=== PATIENT | male | born 1970 | race African-American/Black ===

== ENCOUNTER 2022-02-20 08:25 | Inpatient (IN) ==
--- NOTE | 2022-02-20 08:51 | Emergency Department Note ---
History of Present Illness General Chief complaint: Stroke/CVA Symptoms Stated complaint: Stroke Time Seen by Provider: 02/20/22 08:37 Source: patient and other (Gopal nurse practitioner at the [facility]) History of Present Illness Provider complaint: Weakness Onset (ago): hour(s) Location: upper extremity, lower extremity, left and right Pain Consistency: + constant Quality: + other (Weakness) Relieved By: + none Associated symptoms: + weakness; no chest pain, no cough, no fever/chills, no headaches, no nausea/vomiting or no shortness of breath This is a 51-year-old male who presents with generalized weakness starting at approximately 7 PM yesterday. The patient states that he feels weak all over. This morning he had difficulty walking and states that his arms and legs were shaking. He denies any asymmetric weakness but states that his left side seems weaker than the right when pressed about this question. He denies any fever, cough or cold symptoms, headache, chest pain, shortness of breath, abdominal pain, vomiting, diarrhea or urinary symptoms. I did speak to Gopal who [facility] He stated that the patient reported feeling "off" yesterday after dinner. This morning the CO brought him in at 7:30 AM. He stated that the patient was complaining of difficulty walking and weakness and was not acting himself. He had some difficulty answering questions. The [facility] practitioner noted a right facial droop at rest only. The patient is on lithium but has not had his lithium levels checked since last year. Home Medications Medication Instructions Recorded Confirmed Type propranolol 20 mg tablet 20 mg PO BID 01/23/20 02/20/22 History hydroxyzine pamoate 50 mg capsule 50 mg PO HS 02/20/22 02/20/22 History levothyroxine 50 mcg tablet 50 mcg PO DAILYBB 02/20/22 02/20/22 History lithium carbonate 450 mg 900 mg PO BID 02/20/22 02/20/22 History tablet,extended release Allergies Allergy/AdvReac Type Severity Reaction Status Date / Time No Known Allergies Allergy Verified 02/20/22 09:30 Past Med/Surg History Medical History (Updated 02/20/22 @ 12:59 by Des Correia MD) Bipolar 1 disorder Disc degeneration GERD (gastroesophageal reflux disease) Hyperthyroidism Inmate in correctional facility Left inguinal hernia Neutropenia Sutured skin wound back of head in 1986 Surgical History No history of previous surgery S/P left inguinal hernia repair (02/16/20) Left Open Inguinal Hernia Repair with Mesh Dr. Castro 02/16/20 Family History (Updated 02/20/22 @ 11:37 by GISELA Gibson) Other Family history non-contributory Social History Smoking Status: Current every day smoker Tobacco Type: E-cigarettes / Vaping Preferred Language: Unknown Communication Ability: UNKNOWN Current Living Situation: Other Current Living Situation Comment: [facility] current occupational status: other current occupation: incarcerated Feels Safe at Home: Yes Review of Systems See HPI for pertinent positives & negatives. and A total of 10 systems reviewed and were otherwise negative Physical Exam Vital Signs Vital Signs - 24 hr 02/20/22 08:29 02/20/22 09:17 02/20/22 09:38 Temperature 36.9 C Temperature Source Oral Pulse Rate 70 Pulse Rate [Apical] 74 67 Respiratory Rate 16 16 16 Respiratory Effort / Characteristics Non-Labored Spontaneous Non-Labored Spontaneous Non-Labored Spontaneous Respiratory Depth Normal Normal Normal Respiratory Pattern Regular Blood Pressure 149/100 H Blood Pressure [Right Arm] 134/91 133/87 Blood Pressure Mean 116 Blood Pressure Mean [Right Arm] 105 102 Blood Pressure Position Lying Blood Pressure Position [Right Arm] Lying Lying Pulse Oximetry 96 93 95 Oxygen Delivery Method Room Air Room Air Room Air Sepsis Recent Fever Within 48 Hours No Sepsis New/Unexplained Change in Mental Status No Sepsis Action Taken by Nursing No Action Required 02/20/22 10:16 02/20/22 11:43 02/20/22 12:25 Temperature Temperature Source Pulse Rate Pulse Rate [Apical] 64 60 80 Respiratory Rate 16 16 16 Respiratory Effort / Characteristics Non-Labored Spontaneous Non-Labored Spontaneous Non-Labored Spontaneous Respiratory Depth Normal Normal Normal Respiratory Pattern Regular Blood Pressure Blood Pressure [Right Arm] 124/95 144/99 H 132/88 Blood Pressure Mean Blood Pressure Mean [Right Arm] 104 114 102 Blood Pressure Position Blood Pressure Position [Right Arm] Lying Lying Lying Pulse Oximetry 94 98 97 Oxygen Delivery Method Room Air Room Air Room Air Sepsis Recent Fever Within 48 Hours Sepsis New/Unexplained Change in Mental Status Sepsis Action Taken by Nursing Constitutional: Vital signs reviewed. Eyes: Pupils are equal round reactive to light. Conjunctiva are noninjected. ENT: Pharynx is clear without erythema or exudate. Mucous membranes are moist. Neck supple without meningeal signs. Respiratory: Clear to auscultation bilaterally. Breath sounds are equal bilaterally. Cardiovascular: Regular rate and rhythm. No rubs or gallops. GI: Soft, nondistended and nontender. Bowel sounds are present. Musculoskeletal: No peripheral edema. No lower extremity tenderness. Integumentary: No cyanosis. or jaundice. Neurologic: The patient is appears somewhat sleepy but follows commands. He is somewhat slow to follow commands and answer question but he is oriented x4. Cranial nerves II-XII are intact. Motor is 5 out of 5 all extremities. Sen sation is intact to light touch all extremities. Normal speech. No pronator drift. No limb ataxia. Psychiatric: Normal affect. Not anxious appearing. Course Administered Medications Sodium Chloride (Nss 1000ml) 1,000 mls @ 250 mls/hr IV .Q4H TJ Stop: 03/22/22 09:59 Last Admin: 02/20/22 11:02 Dose: 250 mls/hr Documented By: ESTRADA Discontinued Medications Sodium Chloride (Nss 1000ml) 1,000 mls @ 999 mls/hr IV .Q1H1M ONE Stop: 02/20/22 10:49 Last Infusion: 02/20/22 11:02 Dose: 0 mls/hr Documented By: Admin: 02/20/22 09:58 Dose: 999 mls/hr Documented By: ESTRADA Medical Decision Making Differential Diagnosis [place] toxicity, metabolic derangement, encephalopathy,CVA, TIA, intracranial mass, intracranial bleed, illicit drug use Medical Records Attestation: I reviewed the patient's medical records. I did perform a limited focused review of portions of the patient's old chart on the electronic medical record. The patient has had no recent pertinent visits to this hospital. Home Medications Current Medication List: was personally reviewed by me Laboratory Data Attestation: I reviewed the patient's lab results. Result diagrams: 02/20/22 08:37 02/20/22 08:37 Lab Results 02/20/22 02/20/22 02/20/22 Range/Units 08:37 08:37 08:37 WBC 9.59 (4.8-10.8) K/ul RBC 4.37 L (4.63-6.08) M/uL Hgb 12.9 L (14.0-18.0) g/dl POC Hgb (14.0-18.0) g/dl Hct 38.9 L (40.1-51.0) % POC Hct (42-52) % MCV 89.0 (80.0-100.0) fL MCH 29.5 (25.0-34.0) pg MCHC 33.2 (32.0-36.0) g/dL RDW Std Deviation 44.4 (36.4-46.3) fL RDW Coeff of Kiarra 13.6 (11.5-14.5) % Plt Count 269 (130-400) K/uL MPV 11.7 (9.4-12.4) fL Immature Gran % (Auto) 1.0 % Neut % (Auto) 73.2 % Lymph % (Auto) 14.2 % [place] % (Auto) 7.0 % Eos % (Auto) 4.1 % Baso % (Auto) 0.5 % Neut # (Auto) 7.02 H (1.4-6.5) K/uL Lymph # (Auto) 1.36 (1.2-3.4) K/uL [place] # (Auto) 0.67 (0.24-0.82) K/uL Eos # (Auto) 0.39 (0-0.50) K/uL Baso # (Auto) 0.05 (0-0.2) K/uL Immature Gran # (Auto) 0.10 H (0.00-0.02) K/uL PT Cancelled INR Cancelled APTT Cancelled PTT Ratio Cancelled POC Sodium (135-144) mmol/L Sodium 132 L (136-145) mmol/L POC Potassium (3.3-5.0) mmol/L Potassium 3.9 (3.5-5.1) mmol/L POC Chloride (101-112) mmol/L Chloride 104 (98-107) mmol/L Carbon Dioxide 25 (21-32) mmol/L POC Total CO2 (24-31) mmol/L Anion Gap 3 (3-11) POC Anion Gap (16-25) mmol/L POC BUN (7-18) mg/dl BUN 20 (6-23) mg/dl Creatinine 1.67 H (0.6-1.4) mg/dl POC Creatinine (0.6-1.3) mg/dl Est Cr Clr Drug Dosing 52.9 ml/min Est GFR ( Amer) 54.5 ml/min Est GFR (Non-Af Amer) 47.0 ml/min BUN/Creatinine Ratio 12.0 (10-20) Glucose 97 (70-99(Fasting)) mg/dl POC Glucose (other) (70-99) mg/dl Osmolality (280-300) mOsm/kg Calcium 11.1 H (8.5-10.1) mg/dl POC Ioniz Calcium Mary (1.12-1.32) mmol/l Magnesium 2.4 (1.7-2.4) mg/dl Total Bilirubin 0.8 (0.2-1.0) mg/dl AST 27 (13-39) U/L ALT 29 (7-52) U/L Alkaline Phosphatase 137 H (34-104) U/L Troponin I High Sens 4.4 (0-20) pg/ml Total Protein 8.3 (6.0-8.3) gm/dl Albumin 4.5 (3.4-5.0) gm/dl Globulin 3.8 (2.5-4.0) gm/dl Albumin/Globulin Ratio 1.2 (0.9-2) TSH (0.300-4.500) uIu/ml Free T4 (0.61-1.60) ng/dl Urine Osmolality (500-800) mOsm/kg Ur Random Sodium mmol/L Salicylates (3.0-30) mg/dl Urine Opiates Screen (Neg) Ur Methadone, Qual (Neg) Acetaminophen (10-30) ug/ml Urine Barbiturates (Neg) Ur Phencyclidine (PCP) (Neg) U Amphetamin/Meth Scrn (Neg) MDMA (Ecstasy) Screen (Neg) U Benzodiazepines Scrn (Neg) [place] (0.6-1.2) mmol/L Ur Cocaine Metabolite (Neg) U Marijuana (THC) Screen (Neg) SARS-CoV-2, RNA, NAAT (NEGATIVE) 02/20/22 02/20/22 02/20/22 Range/Units 08:37 08:37 08:37 WBC (4.8-10.8) K/ul RBC (4.63-6.08) M/uL Hgb (14.0-18.0) g/dl POC Hgb (14.0-18.0) g/dl Hct (40.1-51.0) % POC Hct (42-52) % MCV (80.0-100.0) fL MCH (25.0-34.0) pg MCHC (32.0-36.0) g/dL RDW Std Deviation (36.4-46.3) fL RDW Coeff of Kiarra (11.5-14.5) % Plt Count (130-400) K/uL MPV (9.4-12.4) fL Immature Gran % (Auto) % Neut % (Auto) % Lymph % (Auto) % [place] % (Auto) % Eos % (Auto) % Baso % (Auto) % Neut # (Auto) (1.4-6.5) K/uL Lymph # (Auto) (1.2-3.4) K/uL [place] # (Auto) (0.24-0.82) K/uL Eos # (Auto) (0-0.50) K/uL Baso # (Auto) (0-0.2) K/uL Immature Gran # (Auto) (0.00-0.02) K/uL PT INR APTT PTT Ratio POC Sodium (135-144) mmol/L Sodium (136-145) mmol/L POC Potassium (3.3-5.0) mmol/L Potassium (3.5-5.1) mmol/L POC Chloride (101-112) mmol/L Chloride (98-107) mmol/L Carbon Dioxide (21-32) mmol/L POC Total CO2 (24-31) mmol/L Anion Gap (3-11) POC Anion Gap (16-25) mmol/L POC BUN (7-18) mg/dl BUN (6-23) mg/dl Creatinine (0.6-1.4) mg/dl POC Creatinine (0.6-1.3) mg/dl Est Cr Clr Drug Dosing ml/min Est GFR ( Amer) ml/min Est GFR (Non-Af Amer) ml/min BUN/Creatinine Ratio (10-20) Glucose (70-99(Fasting)) mg/dl POC Glucose (other) (70-99) mg/dl Osmolality 293 (280-300) mOsm/kg Calcium (8.5-10.1) mg/dl POC Ioniz Calcium Mary (1.12-1.32) mmol/l Magnesium (1.7-2.4) mg/dl Total Bilirubin (0.2-1.0) mg/dl AST (13-39) U/L ALT (7-52) U/L Alkaline Phosphatase (34-104) U/L Troponin I High Sens (0-20) pg/ml Total Protein (6.0-8.3) gm/dl Albumin (3.4-5.0) gm/dl Globulin (2.5-4.0) gm/dl Albumin/Globulin Ratio (0.9-2) TSH 93.837 H (0.300-4.500) uIu/ml Free T4 0.30 L (0.61-1.60) ng/dl Urine Osmolality (500-800) mOsm/kg Ur Random Sodium mmol/L Salicylates (3.0-30) mg/dl Urine Opiates Screen (Neg) Ur Methadone, Qual (Neg) Acetaminophen (10-30) ug/ml Urine Barbiturates (Neg) Ur Phencyclidine (PCP) (Neg) U Amphetamin/Meth Scrn (Neg) MDMA (Ecstasy) Screen (Neg) U Benzodiazepines Scrn (Neg) [place] 3.2 H* (0.6-1.2) mmol/L Ur Cocaine Metabolite (Neg) U Marijuana (THC) Screen (Neg) SARS-CoV-2, RNA, NAAT (NEGATIVE) 02/20/22 02/20/22 02/20/22 Range/Units 09:04 11:09 11:09 WBC (4.8-10.8) K/ul RBC (4.63-6.08) M/uL Hgb (14.0-18.0) g/dl POC Hgb 12.6 L (14.0-18.0) g/dl Hct (40.1-51.0) % POC Hct 37 L (42-52) % MCV (80.0-100.0) fL MCH (25.0-34.0) pg MCHC (32.0-36.0) g/dL RDW Std Deviation (36.4-46.3) fL RDW Coeff of Kiarra (11.5-14.5) % Plt Count (130-400) K/uL MPV (9.4-12.4) fL Immature Gran % (Auto) % Neut % (Auto) % Lymph % (Auto) % [place] % (Auto) % Eos % (Auto) % Baso % (Auto) % Neut # (Auto) (1.4-6.5) K/uL Lymph # (Auto) (1.2-3.4) K/uL [place] # (Auto) (0.24-0.82) K/uL Eos # (Auto) (0-0.50) K/uL Baso # (Auto) (0-0.2) K/uL Immature Gran # (Auto) (0.00-0.02) K/uL PT INR APTT PTT Ratio POC Sodium 135 (135-144) mmol/L Sodium (136-145) mmol/L POC Potassium 5.1 H (3.3-5.0) mmol/L Potassium (3.5-5.1) mmol/L POC Chloride 104 (101-112) mmol/L Chloride (98-107) mmol/L Carbon Dioxide (21-32) mmol/L POC Total CO2 28 (24-31) mmol/L Anion Gap (3-11) POC Anion Gap 9.0 L (16-25) mmol/L POC BUN 25 H (7-18) mg/dl BUN (6-23) mg/dl Creatinine (0.6-1.4) mg/dl POC Creatinine 1.8 H (0.6-1.3) mg/dl Est Cr Clr Drug Dosing ml/min Est GFR ( Amer) ml/min Est GFR (Non-Af Amer) ml/min BUN/Creatinine Ratio (10-20) Glucose (70-99(Fasting)) mg/dl POC Glucose (other) 99 (70-99) mg/dl Osmolality (280-300) mOsm/kg Calcium (8.5-10.1) mg/dl POC Ioniz Calcium Mary 1.38 H (1.12-1.32) mmol/l Magnesium (1.7-2.4) mg/dl Total Bilirubin (0.2-1.0) mg/dl AST (13-39) U/L ALT (7-52) U/L Alkaline Phosphatase (34-104) U/L Troponin I High Sens (0-20) pg/ml Total Protein (6.0-8.3) gm/dl Albumin (3.4-5.0) gm/dl Globulin (2.5-4.0) gm/dl Albumin/Globulin Ratio (0.9-2) TSH (0.300-4.500) uIu/ml Free T4 (0.61-1.60) ng/dl Urine Osmolality 389 L (500-800) mOsm/kg Ur Random Sodium mmol/L Salicylates (3.0-30) mg/dl Urine Opiates Screen Neg (Neg) Ur Methadone, Qual Neg (Neg) Acetaminophen (10-30) ug/ml Urine Barbiturates Neg (Neg) Ur Phencyclidine (PCP) Neg (Neg) U Amphetamin/Meth Scrn Neg (Neg) MDMA (Ecstasy) Screen Neg (Neg) U Benzodiazepines Scrn Neg (Neg) [place] (0.6-1.2) mmol/L Ur Cocaine Metabolite Neg (Neg) U Marijuana (THC) Screen Neg (Neg) SARS-CoV-2, RNA, NAAT (NEGATIVE) 02/20/22 02/20/22 02/20/22 Range/Units 11:09 11:24 11:55 WBC (4.8-10.8) K/ul RBC (4.63-6.08) M/uL Hgb (14.0-18.0) g/dl POC Hgb (14.0-18.0) g/dl Hct (40.1-51.0) % POC Hct (42-52) % MCV (80.0-100.0) fL MCH (25.0-34.0) pg MCHC (32.0-36.0) g/dL RDW Std Deviation (36.4-46.3) fL RDW Coeff of Kiarra (11.5-14.5) % Plt Count (130-400) K/uL MPV (9.4-12.4) fL Immature Gran % (Auto) % Neut % (Auto) % Lymph % (Auto) % [place] % (Auto) % Eos % (Auto) % Baso % (Auto) % Neut # (Auto) (1.4-6.5) K/uL Lymph # (Auto) (1.2-3.4) K/uL [place] # (Auto) (0.24-0.82) K/uL Eos # (Auto) (0-0.50) K/uL Baso # (Auto) (0-0.2) K/uL Immature Gran # (Auto) (0.00-0.02) K/uL PT INR APTT PTT Ratio POC Sodium (135-144) mmol/L Sodium (136-145) mmol/L POC Potassium (3.3-5.0) mmol/L Potassium (3.5-5.1) mmol/L POC Chloride (101-112) mmol/L Chloride (98-107) mmol/L Carbon Dioxide (21-32) mmol/L POC Total CO2 (24-31) mmol/L Anion Gap (3-11) POC Anion Gap (16-25) mmol/L POC BUN (7-18) mg/dl BUN (6-23) mg/dl Creatinine (0.6-1.4) mg/dl POC Creatinine (0.6-1.3) mg/dl Est Cr Clr Drug Dosing ml/min Est GFR ( Amer) ml/min Est GFR (Non-Af Amer) ml/min BUN/Creatinine Ratio (10-20) Glucose (70-99(Fasting)) mg/dl POC Glucose (other) (70-99) mg/dl Osmolality (280-300) mOsm/kg Calcium (8.5-10.1) mg/dl POC Ioniz Calcium Mary (1.12-1.32) mmol/l Magnesium (1.7-2.4) mg/dl Total Bilirubin (0.2-1.0) mg/dl AST (13-39) U/L ALT (7-52) U/L Alkaline Phosphatase (34-104) U/L Troponin I High Sens (0-20) pg/ml Total Protein (6.0-8.3) gm/dl Albumin (3.4-5.0) gm/dl Globulin (2.5-4.0) gm/dl Albumin/Globulin Ratio (0.9-2) TSH (0.300-4.500) uIu/ml Free T4 (0.61-1.60) ng/dl Urine Osmolality (500-800) mOsm/kg Ur Random Sodium 63 mmol/L Salicylates < 3.0 L (3.0-30) mg/dl Urine Opiates Screen (Neg) Ur Methadone, Qual (Neg) Acetaminophen < 3 L (10-30) ug/ml Urine Barbiturates (Neg) Ur Phencyclidine (PCP) (Neg) U Amphetamin/Meth Scrn (Neg) MDMA (Ecstasy) Screen (Neg) U Benzodiazepines Scrn (Neg) [place] (0.6-1.2) mmol/L Ur Cocaine Metabolite (Neg) U Marijuana (THC) Screen (Neg) SARS-CoV-2, RNA, NAAT NEGATIVE (NEGATIVE) Imaging Data Radiologist's Impression: Chest X-Ray 02/20/22 08:47 SINGLE VIEW CHEST CLINICAL HISTORY: Strokelike symptoms. FINDINGS: An AP, portable, upright chest radiograph is obtained. No prior studies are available for comparison at the time of dictation. The examination is degraded by portable technique and patient rotation. The cardiomediastinal silhouette is unremarkable. The lungs and pleural spaces are clear. No pneumothorax is seen. The bony thorax is grossly intact. Sclerotic change is noted in the left humeral head. IMPRESSION: 1. No acute cardiopulmonary abnormality. 2. Sclerotic change is noted in the left humeral head, possibly representing a bone infarct. Clinical correlation will be required. ACT 112: Negative or not required by law. Electronically signed by: Abdoulaye Rivas M.D. 02/20/2022 9:[address] 02/20/22 08:47 CT SCAN OF THE BRAIN WITHOUT IV CONTRAST CLINICAL HISTORY: Right-sided weakness. Facial droop. Stroke like symptoms. COMPARISON STUDY: No priors. TECHNIQUE: Unenhanced axial CT scan of the brain is performed from the vertex to the skull base. A dose lowering technique was utilized adhering to the principles of ALARA. CT DOSE: 687.98 mGy.cm FINDINGS: Brain parenchyma: The brain parenchyma is normal in appearance. There is no hemorrhage, mass effect, or evidence of acute territorial ischemia by CT criteria. Schaffer-white matter differentiation is preserved. No extra-axial fluid collection is seen. Ventricles, sulci, cisterns: Normal in configuration. Intracranial vasculature: The visualized intracranial vasculature at the skull base is normal in appearance. Calvarium: Unremarkable. Sinuses and mastoids: The visualized paranasal sinuses are clear. The mastoid air cells are well pneumatized. Orbits: The bony orbits are grossly intact. IMPRESSION: There is no hemorrhage, mass effect, or evidence of acute territorial ischemia by CT criteria. ACT 112: Negative or not required by law. Electronically signed by: Abdoulaye Rivas M.D. 02/20/2022 9:21 AM ECG Data Attestation: I personally reviewed and interpreted this ECG as follows: Indication: + altered mental status Rate (beats per minute): 65 Rhythm: + normal sinus ECG Intervals/blocks: + First degree AV block ECG Findings: + Other (Biphasic T waves anteriorly; motion artifact); no PVCs Comparison ECG Date: no prior available MDM Narrative I did evaluate the patient as noted above. He is presenting with sluggishness and difficulty ambulating due to generalized weakness and shaking of his extremities. This started yesterday after supper. I did obtain history from the patient as well as the nurse practitioner on-call Gopal who [facility]. The nurse practitioner stated that he thought he saw a facial droop on the right side at rest. On my examination the patient is neurologically intact. He has generalized weakness throughout but no focal findings or any evidence of facial droop. His symptoms or not necessarily consistent with stroke but given the reported facial droop I did call a stroke alert. IV access was established. I did place an order for continuous cardiac monitoring. The monitor showed normal sinus rhythm at a rate of 66 bpm. I did order and personally review the patient's 12-lead EKG as described above. He has some biphasic T waves. There are some motion artifact. He has no prior EKG to compare this with. He denies any chest pain or shortness of breath. I did order and personally reviewed the images of the patient's chest x-ray as described above. There is no acute cardiopulmonary process. I did order a urine analysis. I did order and review the patient's blood work as noted in the electronic medical record. CBC demonstrates a mild anemia with a hemoglobin of 12.9. Platelet count and white blood cell count are unremarkable. CMP is remarkable for a BUN and creatinine of 20 and 1.67. Calcium is elevated at 1 1.1. Ionized calcium is 1.38. Albumin is within normal limits. High- sensitivity troponin is negative. [place] levels are 3.2. I did order a CT of the head. I did review the images myself as well as the radiology report as described above. There is no evidence of acute intracranial process. I did discuss the test results with the patient. I did treat the patient with a liter of normal saline bolus and then a second liter to be given at twice maintenance rate. I did discuss case with the manager financial reporting on-call, Dr. Albarado. He did not feel the patient needed dialysis. He recommended aggressive fluid management and cardiac monitoring as an inpatient. I did discuss plan with the patient. I did discuss the case with the hospitalist and rn case manager. Impression & Plan [place] toxicity, GERDA (acute kidney injury), Hypercalcemia, Anemia, Hyponatremia Discharge Plan Visit Data Chief Complaint: Stroke/CVA Symptoms Stated Complaint: Stroke ED Provider: Des Correia Discharge Problem: [place] toxicity, GERDA (acute kidney injury), Hypercalcemia, Anemia, Hyponatremia Patient Disposition: Being Evaluated by Hospitalist Forms Stand Alone Forms: My [facility] Prescriptions Prescriptions: No Action propranolol 20 mg tablet 20 mg PO BID hydroxyzine pamoate 50 mg Capsule 50 mg PO HS lithium carbonate 450 mg Tablet Extended Release 900 mg PO BID levothyroxine 50 mcg Tablet 50 mcg PO DAILYBB Referrals Referrals: Page ALEJANDRO [Primary Care Provider] -
[2022-02-20 09:11] LABS: Basophils # (auto) 0.05 K/uL (0-0.2); Basophils % (auto) 0.5 %; Eosinophils # (auto) 0.39 K/uL (0-0.50); Eosinophils % (auto) 4.1 %; Hematocrit (blood only) 38.9 % (40.1-51.0); Hemoglobin 12.9 g/dl (14.0-18.0); Lymphocytes # (auto) 1.36 K/uL (1.2-3.4); Lymphocytes % (auto) 14.2 %; Mean Corpuscular Hemoglobin 29.5 pg (25.0-34.0); Mean Corpuscular Hgb Conc 33.2 g/dL (32.0-36.0); Mean Platelet Volume 11.7 fL (9.4-12.4); Monocytes # (auto) 0.67 K/uL (0.24-0.82); Neutrophils # (auto) 7.02 K/uL (1.4-6.5); Neutrophils % (auto) 73.2 %; Platelet Count 269 K/uL (130-400); RDW Coefficient of Variation 13.6 % (11.5-14.5); RDW Standard Deviation 44.4 fL (36.4-46.3); Red Blood Count 4.37 M/uL (4.63-6.08); White Blood Count 9.59 K/ul (4.8-10.8)
[2022-02-20 09:17] LABS: iSTAT Creatinine 1.8 mg/dl (0.6-1.3); iSTAT Hemoglobin 12.6 g/dl (14.0-18.0); iSTAT Ionized Calcium 1.38 mmol/l (1.12-1.32); iSTAT Potassium 5.1 mmol/L (3.3-5.0)
--- NOTE | 2022-02-20 09:25 | CT Scan Report ---
CT SCAN OF THE BRAIN WITHOUT IV CONTRAST CLINICAL HISTORY: Right-sided weakness. Facial droop. Stroke like symptoms. COMPARISON STUDY: No priors. TECHNIQUE: Unenhanced axial CT scan of the brain is performed from the vertex to the skull base. A d ose lowering technique was utilized adhering to the principles of ALARA. CT DOSE: 687.98 mGy.cm FINDINGS: Brain parenchyma: The brain parenchyma is normal in appearance. There is no hemorrhage, mass effect, or evidence of acute territorial ischemia by CT criteria. Schaffer-white matter differentiation is preser braden. No extra-axial fluid collection is seen. Ventricles, sulci, cisterns: Normal in configuration. Intracranial vasculature: The visualized intracranial vasculature at the skull base is normal in appe arance. Calvarium: Unremarkable. Sinuses and mastoids: The visualized paranasal sinuses are clear. The mastoid air cells are well pneu matized. Orbits: The bony orbits are grossly intact. IMPRESSION: There is no hemorrhage, mass effect, or evidence of acute territorial ischemia by CT micheal zavaleta. ACT 112: Negative or not required by law. Electronically signed by: Abdoulaye Rivas M.D. 02/20/2022 9:21 AM
[2022-02-20 09:26] LABS: Albumin Globulin Ratio 1.2 (0.9-2); Albumin Level 4.5 gm/dl (3.4-5.0); Bilirubin,Total 0.8 mg/dl (0.2-1.0); Calcium 11.1 mg/dl (8.5-10.1); Creatinine Clr Calc Pharmacy 52.9 ml/min; Est GFR (African American) 54.5 ml/min; Globulin 3.8 gm/dl (2.5-4.0); Magnesium 2.4 mg/dl (1.7-2.4); Potassium 3.9 mmol/L (3.5-5.1); Total Protein 8.3 gm/dl (6.0-8.3)
[2022-02-20 09:29] LABS: Troponin I High Sensitivity 4.4 pg/ml (0-20)
--- NOTE | 2022-02-20 09:29 | XRay Report ---
SINGLE VIEW CHEST CLINICAL HISTORY: Strokelike symptoms. FINDINGS: An AP, portable, upright chest radiograph is obtained. No prior studies are available for c omparison at the time of dictation. The examination is degraded by portable technique and patient rot ation. The cardiomediastinal silhouette is unremarkable. The lungs and pleural spaces are clear. No p neumothorax is seen. The bony thorax is grossly intact. Sclerotic change is noted in the left humeral head. IMPRESSION: 1. No acute cardiopulmonary abnormality. 2. Sclerotic change is noted in the left humeral head, possibly representing a bone infarct. Clinical correlation will be required. ACT 112: Negative or not required by law. Electronically signed by: Abdoulaye Rivas M.D. 02/20/2022 9:27 AM
[2022-02-20] MEDS ORDERED: SODIUM CHLORIDE 0.9% 1000ML 1,000 ML IV ONE (09:49)
[2022-02-20 10:08] LABS: Thyroid Stimulating Hormone 93.837 uIu/ml (0.300-4.500)
[2022-02-20 10:45] LABS: T4 Free Thyroxine 0.3 ng/dl (0.61-1.60)
[2022-02-20] MEDS: SODIUM CHLORIDE 0.9% 1000ML 1,000 ML IV SCH ×4 (11:02→21:22)
--- NOTE | 2022-02-20 11:28 | History & Physical Report ---
Date of Service February 20, 2022 Assessment & Plan (1) Divide toxicity: Plan: Divide level 3.2 in a chronic use patient. Patient denies any recent change in his dosing. he is with mild encephalopathy, tremors in upper and lower extremities, dis-coordination - Possibly caused by change in GFR ? 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 - Continue with crystalloid infusion- avoid hypovolemia - promote renal excretion- consider diuretic therapy- follow to assist with volume status evaluation - follow renal indices- BMP q4 hours - serum osmo and urine osmo/urine NA pending - Nephrology was consulted by the EMD- no current need- data is mixed in regards to benefit/risk of dialysis (gail 2007), (Dez 1994), (Cuong 2002) - iCA 1.38 - TSH 93 consistent with chronic use and toxicity as well as underlying thyroid disease - Consider psych consultation if management of bipolar needed - Will hold his propranolol although this should have minimal effect on HR- currently he is with 1st degree AV block with HR 60 (2) Hypothyroidism: Plan: Hx of on Synthroid - also with note of hyperthyroidism in his chart. Patient is unsure - Current TSH level consistent with above (3) Bipolar 1 disorder: Plan: Hold his Divide- follow - as above - continue hydroxyzine (4) GERD (gastroesophageal reflux disease): Plan: Famotidine daily IV (5) GERDA (acute kidney injury): Plan: As above aggressive volume replacement for now - follow [employer] History of Present Illness Primary Care Provider: FLAVIA Abel 51 YOM with medical history of: bipolar disorder(on Divide), hypothyroidism, HTN. Patient comes to the EMD today for concerns of ataxia and reported facial droop and tremor. In the EMD the patient had initial stroke work-up and routine labs to include lithium level and TSH. The patient lithium level is increased to 3.2 and consistent with this elevated lithium level he is notably hypothyroid with TSH 93 and T4 -0.3. The patient states that this started approximately 2 weeks ago. He noted that his legs were becoming rigid and shaky as well as tremors in his upper extremities when trying to get dressed. He has becoming full more quickly but states he has been drinking fine and urinating normally with yellow urine. He denies any diarrhea or vomiting. He denies any other use of NSAIDS or Tylenol and no new medications initiated over the past few weeks. He does note addition of propranolol within the past month. Patient TO[employer] is elevated 1.67 with unknown baseline. Rest of his electrolytes are normal. He received 1.5 liters of crystalloid in the EMD. Will bolus the rest of remaining saline bag and transition to ringers lactate. Will likely need more volume. Will send serum osmo, urine osmo, and urine sodium level. Will also add on Salicylate and Tylenol levels. Urine Tox is also pending. Patient will be admi tted to ICU for frequent neurological exams as well as continued resuscitation. Will hold his Divide. As this is likely chronic use exacerbated his levels in his tissues are likely higher making his status more tenuous. COVID test on admission is: PENDING Allergies Allergy/AdvReac Type Severity Reaction Status Date / Time No Known Allergies Allergy Verified 02/20/22 09:30 Home Medications Medication Instructions Recorded Confirmed Type propranolol 20 mg tablet 20 mg PO BID 01/23/20 02/20/22 History hydroxyzine pamoate 50 mg capsule 50 mg PO HS 02/20/22 02/20/22 History levothyroxine 50 mcg tablet 50 mcg PO DAILYBB 02/20/22 02/20/22 History lithium carbonate 450 mg 900 mg PO BID 02/20/22 02/20/22 History tablet,extended release Past Med/Surg History Medical History (Updated 02/20/22 @ 11:43 by GISELA Gibson) Bipolar 1 disorder Disc degeneration GERD (gastroesophageal reflux disease) Hyperthyroidism Inmate in correctional facility Left inguinal hernia Neutropenia Sutured skin wound back of head in 1986 Surgical History No history of previous surgery S/P left inguinal hernia repair (02/16/20) Left Open Inguinal Hernia Repair with Mesh Dr. Castro 02/16/20 Family History (Updated 02/20/22 @ 11:37 by GISELA Gibson) Other Family history non-contributory Social History Smoking Status: Current every day smoker Tobacco Type: E-cigarettes / Vaping Preferred Language: Unknown Communication Ability: UNKNOWN Current Living Situation: Other Current Living Situation Comment: [facility] current occupational status: other current occupation: incarcerated Feels Safe at Home: Yes Review of Systems Review of Systems: REVIEW OF SYSTEMS: Constitutional: No fever, sweats or chills Eyes: No diplopia, no worsening or blurred vision ENT: normal hearing, no trouble swallowing Respiratory: No cough, sputum, dyspnea at rest or on exertion Cardiovascular: No chest pain, tightness or palpitations Abdomen: No pain, nausea, vomiting, diarrhea or constipation Musculoskeletal: ing, No joint pain, calf pain, swelling Neurologic: (+) feeling "slow", tremors and legs shaking, No weakness, numbness/tingling, or balance problems Psychiatric: No anxiety or depression Skin: No rash or itch Physical Exam Physical Exam: PHYSICAL EXAM: General: awake but slow/encephalopathic Head: Normocephalic, atraumatic ENT: PERRLA, without nystagmus, EOMI, no pharyngeal exudate, mucous membranes moist Neuro: AAO x 3, speech clear and appropriate, strength intact bilaterally 5/5, sensation intact and equal all extremities and dermatomes, no pronator drift, dischronation upper and ower extremities Chest: equal rise and fall of the chest, no accessory muscle use, no heaves or thrills, Clear to auscultation, on room air, Cardiac: Regular rate and rhythm, telemetry reviewed, skin warm dry, cap refill <3 seconds, peripheral pulses +2 no JVD, no murmur, no edema GI: NABS x 4 quadrants, soft, nontender to palpation, no rebound, guarding or tenderness : Spontaneously voiding, no pain, no CVA tenderness, Extremities: Normal inspection, no peripheral edema or erythema, calfs nontender to palpation Psych: flat affect Skin: no rash or erythema Results & Data Results & Data ([facility]) Vital Signs (Past 12 Hours) Vital Signs Temp Pulse Pulse Resp BP BP Pulse Ox 02/20/22 10:16 64 16 124/95 94 02/20/22 09:38 67 16 133/87 95 02/20/22 09:17 74 16 134/91 93 02/20/22 08:29 36.9 C 70 16 149/100 H 96 O2 Del Method 07/14/22 10:16 Room Air 02/20/22 09:38 Room Air 02/20/22 09:17 Room Air 02/20/22 08:29 Room Air Laboratory Results Abnormal lab results 02/20/22 02/20/22 02/20/22 Range/Units 08:37 08:37 08:37 RBC 4.37 L (4.63-6.08) M/uL Hgb 12.9 L (14.0-18.0) g/dl POC Hgb (14.0-18.0) g/dl Hct 38.9 L (40.1-51.0) % POC Hct (42-52) % Neut # (Auto) 7.02 H (1.4-6.5) K/uL Immature Gran # (Auto) 0.10 H (0.00-0.02) K/uL Sodium 132 L (136-145) mmol/L POC Potassium (3.3-5.0) mmol/L POC Anion Gap (16-25) mmol/L POC BUN (7-18) mg/dl Creatinine 1.67 H (0.6-1.4) mg/dl POC Creatinine (0.6-1.3) mg/dl Calcium 11.1 H (8.5-10.1) mg/dl POC Ioniz Calcium Mary (1.12-1.32) mmol/l Alkaline Phosphatase 137 H (34-104) U/L TSH (0.300-4.500) uIu/ml Free T4 (0.61-1.60) ng/dl Divide 3.2 H* (0.6-1.2) mmol/L 02/20/22 02/20/22 Range/Units 08:37 09:04 RBC (4.63-6.08) M/uL Hgb (14.0-18.0) g/dl POC Hgb 12.6 L (14.0-18.0) g/dl Hct (40.1-51.0) % POC Hct 37 L (42-52) % Neut # (Auto) (1.4-6.5) K/uL Immature Gran # (Auto) (0.00-0.02) K/uL Sodium (136-145) mmol/L POC Potassium 5.1 H (3.3-5.0) mmol/L POC Anion Gap 9.0 L (16-25) mmol/L POC BUN 25 H (7-18) mg/dl Creatinine (0.6-1.4) mg/dl POC Creatinine 1.8 H (0.6-1.3) mg/dl Calcium (8.5-10.1) mg/dl POC Ioniz Calcium Mary 1.38 H (1.12-1.32) mmol/l Alkaline Phosphatase (34-104) U/L TSH 93.837 H (0.300-4.500) uIu/ml Free T4 0.30 L (0.61-1.60) ng/dl Divide (0.6-1.2) mmol/L Diagnostic Findings Chest X-Ray 02/20/22 08:47 SINGLE VIEW CHEST CLINICAL HISTORY: Strokelike symptoms. FINDINGS: An AP, portable, upright chest radiograph is obtained. No prior studies are available for comparison at the time of dictation. The examination is degraded by portable technique and patient rotation. The cardiomediastinal silhouette is unremarkable. The lungs and pleural spaces are clear. No pneumothorax is seen. The bony thorax is grossly intact. Sclerotic change is noted in the left humeral head. IMPRESSION: 1. No acute cardiopulmonary abnormality. 2. Sclerotic change is noted in the left humeral head, possibly representing a bone infarct. Clinical correlation will be required. ACT 112: Negative or not required by law. Electronically signed by: Abdoulaye Rivas M.D. 02/20/2022 9:[address] 02/20/22 08:47 CT SCAN OF THE BRAIN WITHOUT IV CONTRAST CLINICAL HISTORY: Right-sided weakness. Facial droop. Stroke like symptoms. COMPARISON STUDY: No priors. TECHNIQUE: Unenhanced axial CT scan of the brain is performed from the vertex to the skull base. A dose lowering technique was utilized adhering to the principles of ALARA. CT DOSE: 687.98 mGy.cm FINDINGS: Brain parenchyma: The brain parenchyma is normal in appearance. There is no hemorrhage, mass effect, or evidence of acute territorial ischemia by CT criteria. Schaffer-white matter differentiation is preserved. No extra-axial fluid collection is seen. Ventricles, sulci, cisterns: Normal in configuration. Intracranial vasculature: The visualized intracranial vasculature at the skull base is normal in appearance. Calvarium: Unremarkable. Sinuses and mastoids: The visualized paranasal sinuses are clear. The mastoid air cells are well pneumatized. Orbits: The bony orbits are grossly intact. IMPRESSION: There is no hemorrhage, mass effect, or evidence of acute territorial ischemia by CT criteria. ACT 112: Negative or not required by law. Electronically signed by: Abdoulaye Rivas M.D. 02/20/2022 9:21 AM Medications Administered Home Medications propranolol 20 mg tablet 20 mg PO BID 01/23/20 [History Confirmed 02/20/22] hydroxyzine pamoate 50 mg capsule 50 mg PO HS 02/20/22 [History Confirmed 02/20/22] levothyroxine 50 mcg tablet 50 mcg PO DAILYBB 02/20/22 [History Confirmed 02/20/22] lithium carbonate 450 mg tablet,extended release 900 mg PO BID 02/20/22 [History Confirmed 02/20/22] Active Medications Sodium Chloride (Nss 1000ml) 1,000 mls @ 250 mls/hr IV .Q4H TJ Stop: 03/22/22 09:59 Last Admin: 02/20/22 11:02 Dose: 250 mls/hr Lactated Ringer's (Lr) 1,000 mls @ 200 mls/hr IV .Q5H TJ Stop: 03/22/22 11:29 Sodium Chloride (Nss 1000ml) 1,000 mls @ 250 mls/hr IV .Q4H TJ Stop: 03/22/22 09:59 Last Admin: 02/20/22 11:02 Dose: 250 mls/hr Documented By: ESTRADA Discontinued Medications Sodium Chloride (Nss 1000ml) 1,000 mls @ 999 mls/hr IV .Q1H1M ONE Stop: 02/20/22 10:49 Last Infusion: 02/20/22 11:02 Dose: 0 mls/hr Documented By: Admin: 02/20/22 09:58 Dose: 999 mls/hr Documented By: ESTRADA ECG Additional Comments: Sinus rhythm with 1st degree A-V block Non-specific intra-ventricular conduction block T wave abnormality, consider anterolateral ischemia Abnormal ECG No previous ECGs available QT/QTc 394/409 Code Status & VTE Plan Code Status CODE: FULL VTE: SCDS, Heparin 5000 units subq q q8 hour VTE Prophylaxis Plan VTE Prophylaxis will be ordered: Yes Supervising Physician Co-Signing Physician Notes I supervised GISELA Caban on this admission. I interviewed and examined the patient independently of him. The plan is as written in his note except for any following changes/exceptions: None 51yo M w/ hx of bipolar who presents for toxic encephalopathy. Patient was in his normal state of health until yesterday even when he reports non-focal weakness and gait instability. Presents here with presumed GERDA (no priors) and elevated lithium level. Apart from lethargy and weakness, no acute complaints. Denies polyuria/polydipsia. Denies focal pain. Plan to admit to ICU, replete with IV fluids, and monitor levels. PG Care Time/CCT Total # of Minutes Spent Total Time Spent with Patient: Total time spent is greater than 50% in coordination of care (as documented) at patient's floor/unit and/or counseling patient: Coding Level of Care Code 55661 Initial Inpt Care Lvl 3 Diagnoses Divide toxicity T56.891A Hypothyroidism E03.9 Bipolar 1 disorder F31.9 GERD (gastroesophageal reflux disease) K21.9 GERDA (acute kidney injury) N17.9
[2022-02-20] MEDS ORDERED: LACTATED RINGER'S 1,000 ML IV SCH (11:30)
[2022-02-20 11:47] LABS: Amphetamines+Metham, Urine Neg (Neg); Barbiturates, Urine Neg (Neg); Benzodiazepine, Urine Neg (Neg); Cocaine, Urine Neg (Neg); MDMA (Ecstacy), Urine Neg (Neg); Methadone, Urine Neg (Neg); Opiate, Urine Neg (Neg); Phencyclidine, Urine Neg (Neg)
--- NOTE | 2022-02-20 12:34 | Electrocardiogram Report ---
Test Reason : Blood Pressure : / mmHG Vent. Rate : 065 BPM Atrial Rate : 065 BPM P-R Int : 254 ms QRS Dur : 128 ms QT Int : 394 ms P-R-T Axes : 033 -14 -27 degrees QTc Int : 409 ms Sinus rhythm with 1st degree A-V block Non-specific intra-ventricular conduction block T wave abnormality, consider anterolateral ischemia Abnormal ECG No previous ECGs available Confirmed by Josue Josue ([id number]) on 02/20/2022 12:33:39 PM Referred By: [facility] Confirmed By:Abrahan Josue
[2022-02-20 12:41] LABS: Acetaminophen < 3 ug/ml (10-30); Salicylate < 3.0 mg/dl (3.0-30)
[2022-02-20] MEDS ORDERED: ICU PROTOCOL FOR HYPERGLYCEMIA PRN (14:52)
--- NOTE | 2022-02-20 15:07 | Critical Care Consultation ---
Date of Consultation February 20, 2022 Assessment & Plan (1) Admitted to intensive care unit: Impression: 51-year-old male with chronic lithium use presenting to the hospital for generalized weakness and ataxia secondary to lithium overdose. Currently hemodynamically stable. Plan: Neuro: Metabolic encephalopathy -Somnolence and neurologic change likely secondary to lithium overdose Respiratory: -No current respiratory problems, however, can rapidly change in the setting of lithium overdose. Continue to monitor oxygen saturation and add oxygen supplementation if needed. Cardiovascular: First-degree AV block -Unsure if this is acute or chronic issue as there are no previous EKGs available. Could be due to chronic lithium use. Renal/electrolyte: [place] toxicity -Presented with a lithium level of 3.2 with likely higher levels in the tissue. -Fluid hydration utilizing Normosol -Nephrology consulted for evaluation of need for hemodialysis, however, not indicated at this time per nephrology GERDA -GERDA is suspected, however, there is no known baseline creatinine from this patient. Will provide fluid resuscitation to see if there is any improvement. GI: GERD -IV famotidine every 12 Endocrine: Hypothyroidism -Elevated TSH at 93.8 with a free T4 of 0.3 indicative of chronic lithium use. -Synthroid for T4 replacement ICU hyperglycemia protocol, no history of diabetes Infectious disease: No ID problems at this time Heme-onc: Heparin for DVT prophylaxis Psych: Bipolar 1 disorder -Hold lithium for now in the setting of overdose -Patient could benefit from a psych consultation to explore alternatives to lithium therapy Diet: Regular DVT prophylaxis: Heparin Disposition: ICU CODE STATUS: Full code (2) Bipolar 1 disorder: (3) [place] toxicity: (4) Hypothyroidism: (5) GERDA (acute kidney injury): (6) Hypercalcemia: Supervising Physician Co-Signing Physician Notes Dr. Pérez was resident physician during care of patient. I separately evaluated patient for chacko portions of the history and the exam. I was present during the critical portion of medical decision making, and I discussed the case with the resident. I generally agree with the findings and plan. Continue monitoring lithium level and aggressive hydration. No indication for dialysis at this time. I have personally spent 35 minutes of critical care time in the direct management of this patient. This is a life/limb threatening event. This includes time spent evaluating patient, direct bedside care, chart review, placing orders, interpretation of diagnostic studies, discussion with consultants, patient, and/or family members regarding treatment decisions, as well as other required patient management activities. This time is exclusive of all separately billable procedures, and teaching time and separate from and in addition to any other critical care service time. History of Present Illness Attending Physician: Eduardo August DO History of Present Illness Patient is a 51-year-old male with a past medical history of bipolar disorder with lithium use presenting to the hospital for the chief complaint of weakness/ shakiness. Patient reports difficulty with walking as well as tremor today too. Notes that the symptoms have been going on for the past 2 weeks and have been worsening. Patient reports that he has been urinating well without difficulty. Denies any changes in his lithium dosage, however, level has not been checked in over a year. At this time patient overall feels fatigued and weak. Patient is hungry and would like to eat something. Otherwise patient denies any chest pain, shortness of breath, numbness, headache. No other complaints at this time. Allergies Allergy/AdvReac Type Severity Reaction Status Date / Time No Known Allergies Allergy Verified 02/20/22 09:30 Home Medications Medication Instructions Recorded Confirmed Type propranolol 20 mg tablet 20 mg PO BID 01/23/20 02/20/22 History hydroxyzine pamoate 50 mg capsule 50 mg PO HS 02/20/22 02/20/22 History levothyroxine 50 mcg tablet 50 mcg PO DAILYBB 02/20/22 02/20/22 History lithium carbonate 450 mg 900 mg PO BID 02/20/22 02/20/22 History tablet,extended release Patient History Medical History Bipolar 1 disorder Disc degeneration GERD (gastroesophageal reflux disease) Hyperthyroidism Inmate in correctional facility Left inguinal hernia Neutropenia Sutured skin wound back of head in 1986 Surgical History No history of previous surgery S/P left inguinal hernia repair (02/16/20) Left Open Inguinal Hernia Repair with Mesh Dr. Castro 02/16/20 Family History Other Family history non-contributory Social History Smoking Status: Current some day smoker Tobacco Type: E-cigarettes / Vaping Second Hand Exposure: Yes; Hx Alcohol Use: No Hx Substance Use: Yes Preferred Language: Sammarinese Communication Ability: Effective E Commerce Manager Required: No Beliefs That Will Affect Care: None Current Living Situation: Other Current Living Situation Comment: [facility] current occupational status: other current occupation: incarcerated Feels Safe at Home: Declines to Answer Assistive Devices: Glasses Review of Systems Review of Systems: All systems reviewed & are unremarkable except as noted in HPI & below Physical Exam Constitutional: well developed, well nourished, cooperative and + lethargic Eyes: + anicteric sclerae Neck: trachea midline, no thyromegaly Respiratory: normal respiratory effort, lungs clear to auscultation Cardiovascular: RRR, no murmur, no edema Gastrointestinal (Abdomen): normal bowel sounds, soft, nontender, no hepatosplenomegaly Musculoskeletal: Head/Neck/Chest: normocephalic and head atraumatic Skin: no rashes, warm and dry Neurologic: moves all extremities Psychiatric: Orientation: oriented x 3 Eye Contact: + fair eye contact Affect: + flat affect Lymphatic: no cervical lymphadenopathy Results & Data Results & Data ([facility]) Vital Signs (Past 12 Hours) Vital Signs Temp Pulse Pulse Resp BP BP Pulse Ox 02/20/22 15:00 60 13 96 02/20/22 14:50 60 15 95 02/20/22 14:45 134/84 02/20/22 14:45 61 10 L 97 02/20/22 14:43 139/89 02/20/22 14:43 66 15 91 02/20/22 14:42 147/88 H 02/20/22 14:42 62 18 95 02/20/22 14:40 83 13 99 02/20/22 14:04 62 18 119/83 98 02/20/22 13:12 61 16 116/85 98 02/20/22 12:25 80 16 132/88 97 02/20/22 11:43 60 16 144/99 H 98 02/20/22 10:16 64 16 124/95 94 02/20/22 09:38 67 16 133/87 95 02/20/22 09:17 74 16 134/91 93 02/20/22 08:29 36.9 C 70 16 149/100 H 96 O2 Del Method 02/20/22 15:00 02/20/22 14:50 02/20/22 14:45 02/20/22 14:45 02/20/22 14:43 02/20/22 14:43 02/20/22 14:42 02/20/22 14:42 02/20/22 14:40 02/20/22 14:04 Room Air 02/20/22 13:12 Room Air 02/20/22 12:25 Room Air 02/20/22 11:43 Room Air 02/20/22 10:16 Room Air 02/20/22 09:38 Room Air 02/20/22 09:17 Room Air 02/20/22 08:29 Room Air
[2022-02-20] MEDS: HEPARIN SOD 5,000 UNIT/0.5 ML VIAL SQ SCH ×2 (15:45→21:21)
[2022-02-20] MEDS: FAMOTIDINE 20 MG in SYRINGE 3 ML IV SCH (15:47)
[2022-02-20 16:00] LABS: Calcium 10.5 mg/dl (8.5-10.1); Creatinine Clr Calc Pharmacy 57.4 ml/min; Est GFR (African American) 60.1 ml/min; Est GFR (Non-African American) 51.8 ml/min; Potassium 3.8 mmol/L (3.5-5.1)
--- NOTE | 2022-02-20 16:39 | Nephrology Consultation ---
Date of Consultation February 20, 2022 Assessment & Plan (1) [place] toxicity: Chronic lithium toxicity presenting with generalized weakness. No focal neurologic deficit, hemodynamic instability, or respiratory distress. [place] level is moderately elevated. Patient appears clinically volume contracted. He is nonoliguric and is tolerating IV hydration. Cr has improved from 1.8 to 1.5. [place] level has improved from 3.2 to 2.7. 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 Will change IVF to 0.9 NS at 225 cc/hr x 2.5 L, then stop. Agree w/ admitting service order to hold lithium therapy and monitor serial lithium levels. History of Present Illness Reason for Consultation: [place] toxicity, GERDA Attending Physician: Eduardo August DO History of Present Illness Mr. Haynes is a 51 year old [facility] inmate who is seen at the request of the [facility] Hospitalist Service for evaluation of [place] toxicity. Mr. Haynes has bipolar disorder managed w/ lithium therapy. He does not recall recently having his level checked. This morning he was brought to the [facility] for evaluation of generalized weakness. [place] level was 3.2. Dr. Correia requested a Nephrology telephone consultation. Patient was reported to be A&O with no focal neurologic deficit. He was reported to be hemodynamically stable and without arrhythmia. He was in no respiratory distress and not experiencing N&V. Cr was moderately elevated at 1.8 but patient was noted to be making urine. It was felt that hemodialysis was not emergently needed and a trial of medical therapy was recommended. Admission to the ICU for aggressive IV hydration and serial monitoring of lithium level was advised. Allergies Allergy/AdvReac Type Severity Reaction Status Date / Time No Known Allergies Allergy Verified 02/20/22 09:30 Home Medications Medication Instructions Recorded Confirmed Type propranolol 20 mg tablet 20 mg PO BID 01/23/20 02/20/22 History hydroxyzine pamoate 50 mg capsule 50 mg PO HS 02/20/22 02/20/22 History levothyroxine 50 mcg tablet 50 mcg PO DAILYBB 02/20/22 02/20/22 History lithium carbonate 450 mg 900 mg PO BID 02/20/22 02/20/22 History tablet,extended release Patient History Medical History Bipolar 1 disorder Disc degeneration GERD (gastroesophageal reflux disease) Hyperthyroidism Inmate in correctional facility Left inguinal hernia Neutropenia Sutured skin wound back of head in 1986 Surgical History No history of previous surgery S/P left inguinal hernia repair (02/16/20) Left Open Inguinal Hernia Repair with Mesh Dr. Castro 02/16/20 Family History Other Family history non-contributory Social History Smoking Status: Current some day smoker Tobacco Type: E-cigarettes / Vaping Second Hand Exposure: Yes; Hx Alcohol Use: No Hx Substance Use: Yes Preferred Language: Latvian Communication Ability: Effective Supervisor Pastry Required: No Beliefs That Will Affect Care: None Current Living Situation: Other Current Living Situation Comment: [facility] current occupational status: other current occupation: incarcerated Feels Safe at Home: Declines to Answer Assistive Devices: Glasses Review of Systems Constitutional: + weakness Eyes: no problem reported Ear, Nose, Mouth, Throat: no problem reported Respiratory: no dyspnea Cardiovascular: no chest pain Gastrointestinal: no abdominal pain, no vomiting and no diarrhea/loose stools Genitourinary: no difficulty urinating Physical Exam Constitutional: not in distress Eyes: PERRL, conjunctivae normal, anicteric sclerae ENMT: Mouth: + dry oral mucous membranes Neck: trachea midline, no thyromegaly Respiratory: normal respiratory effort, lungs clear to auscultation Cardiovascular: RRR, no murmur, no edema Gastrointestinal (Abdomen): normal bowel sounds, soft, nontender, no hepatosplenomegaly Skin: no rashes, warm and dry + turgor decreased Neurologic: awake; not confused Results & Data ([facility]) Vital Signs (Past 12 Hours) Vital Signs Temp Pulse Pulse Resp BP BP Pulse Ox 02/20/22 16:00 62 02/20/22 16:00 66 21 02/20/22 15:00 124/86 02/20/22 15:00 36.3 C L 02/20/22 15:34 36.3 C L 02/20/22 15:00 60 13 96 02/20/22 14:50 60 15 95 02/20/22 14:45 134/84 02/20/22 14:45 61 10 L 97 02/20/22 14:43 139/89 02/20/22 14:43 66 15 91 02/20/22 14:42 147/88 H 02/20/22 14:42 62 18 95 02/20/22 14:40 83 13 99 02/20/22 14:52 61 02/20/22 14:04 62 18 119/83 98 02/20/22 13:12 61 16 116/85 98 02/20/22 12:25 80 16 132/88 97 02/20/22 11:43 60 16 144/99 H 98 02/20/22 10:16 64 16 124/95 94 02/20/22 09:38 67 16 133/87 95 02/20/22 09:17 74 16 134/91 93 02/20/22 08:29 36.9 C 70 16 149/100 H 96 O2 Del Method 02/20/22 16:00 02/20/22 16:00 02/20/22 15:00 02/20/22 15:00 02/20/22 15:34 02/20/22 15:00 02/20/22 14:50 02/20/22 14:45 02/20/22 14:45 02/20/22 14:43 02/20/22 14:43 02/20/22 14:42 02/20/22 14:42 02/20/22 14:40 02/20/22 14:52 02/20/22 14:04 Room Air 02/20/22 13:12 Room Air 02/20/22 12:25 Room Air 02/20/22 11:43 Room Air 02/20/22 10:16 Room Air 02/20/22 09:38 Room Air 02/20/22 09:17 Room Air 02/20/22 08:29 Room Air Laboratory Results Laboratory Tests 02/20/22 02/20/22 02/20/22 08:37 08:37 09:04 WBC 9.59 Hgb 12.9 L Hct 38.9 L Plt Count 269 Sodium Potassium Chloride Carbon Dioxide BUN Creatinine POC Creatinine 1.8 H Est GFR ( Amer) Calcium Salicylates Urine Opiates Screen Ur Methadone, Qual Acetaminophen Urine Barbiturates Ur Phencyclidine (PCP) U Amphetamin/Meth Scrn MDMA (Ecstasy) Screen U Benzodiazepines Scrn [place] 3.2 H* Ur Cocaine Metabolite U Marijuana (THC) Screen 02/20/22 02/20/22 02/20/22 11:09 11:55 15:00 WBC Hgb Hct Plt Count Sodium 134 L Potassium 3.8 Chloride 107 Carbon Dioxide 25 BUN 17 Creatinine 1.54 H POC Creatinine Est GFR ( Amer) 60.1 Calcium 10.5 H Salicylates < 3.0 L Urine Opiates Screen Neg Ur Methadone, Qual Neg Acetaminophen < 3 L Urine Barbiturates Neg Ur Phencyclidine (PCP) Neg U Amphetamin/Meth Scrn Neg MDMA (Ecstasy) Screen Neg U Benzodiazepines Scrn Neg [place] Ur Cocaine Metabolite Neg U Marijuana (THC) Screen Neg 02/20/22 15:00 WBC Hgb Hct Plt Count Sodium Potassium Chloride Carbon Dioxide BUN Creatinine POC Creatinine Est GFR ( Amer) Calcium Salicylates Urine Opiates Screen Ur Methadone, Qual Acetaminophen Urine Barbiturates Ur Phencyclidine (PCP) U Amphetamin/Meth Scrn MDMA (Ecstasy) Screen U Benzodiazepines Scrn [place] 2.7 H* Ur Cocaine Metabolite U Marijuana (THC) Screen Diagnostic Findings 02/20/22 ECG: Sinus rhythm with 1st degree A-V block Non-specific intra-ventricular conduction block T wave abnormality, consider anterolateral ischemia 02/20/22 CXR: No acute cardiopulmonary abnormality. 02/20/[address]: There is no hemorrhage, mass effect, or evidence of acute territorial ischemia by CT criteria. PG Care Time/CCT Total # of Minutes Spent Total Time Spent with Patient: Total time spent is greater than 50% in coordination of care (as documented) at patient's floor/unit and/or counseling patient: Coding Level of Care Code 02877 Inpt Consult Level 5 Diagnoses [place] toxicity T56.891A
[2022-02-20] MEDS ORDERED: PNEUMOCOCCAL POLYSACCHARIDES 25 MCG/0.5 ML VIAL/SYR IM ONE (17:45)
[2022-02-20] MEDS ORDERED: NORMOSOL-R 1,000 ML IV SCH (18:45)
[2022-02-20 19:43] LABS: BUN Creatinine Ratio 11.5 (10-20); Calcium 10.6 mg/dl (8.5-10.1); Creatinine Clr Calc Pharmacy 59.7 ml/min; Est GFR (Non-African American) 54.4 ml/min
[2022-02-20] MEDS: hydrOXYzine HCl 25 MG TAB PO SCH (21:21)
[2022-02-20 23:29] LABS: BUN Creatinine Ratio 10.2 (10-20); Calcium 10.4 mg/dl (8.5-10.1); Creatinine Clr Calc Pharmacy 60.1 ml/min; Est GFR (African American) 63.6 ml/min; Est GFR (Non-African American) 54.8 ml/min; Potassium 3.8 mmol/L (3.5-5.1)
[2022-02-21] MEDS: SODIUM CHLORIDE 0.9% 1000ML 1,000 ML IV SCH ×4 (02:57→18:10)
[2022-02-21] MEDS: HEPARIN SOD 5,000 UNIT/0.5 ML VIAL SQ SCH ×3 (05:27→21:29)
[2022-02-21] MEDS: FAMOTIDINE 20 MG in SYRINGE 3 ML IV SCH ×2 (05:27→17:30)
[2022-02-21 06:00] LABS: Basophils # (auto) 0.04 K/uL (0-0.2); Basophils % (auto) 0.4 %; Eosinophils # (auto) 0.28 K/uL (0-0.50); Eosinophils % (auto) 2.8 %; Hematocrit (blood only) 33.8 % (40.1-51.0); Hemoglobin 11.3 g/dl (14.0-18.0); Immature Granulocytes # (auto) 0.06 K/uL (0.00-0.02); Immature Granulocytes % (auto) 0.6 %; Lymphocytes # (auto) 1.02 K/uL (1.2-3.4); Lymphocytes % (auto) 10.2 %; Mean Corpuscular Hemoglobin 29.8 pg (25.0-34.0); Mean Corpuscular Hgb Conc 33.4 g/dL (32.0-36.0); Mean Corpuscular Volume 89.2 fL (80.0-100.0); Mean Platelet Volume 11.4 fL (9.4-12.4); Monocytes # (auto) 0.74 K/uL (0.24-0.82); Monocytes % (auto) 7.4 %; Neutrophils # (auto) 7.82 K/uL (1.4-6.5); Neutrophils % (auto) 78.6 %; Platelet Count 229 K/uL (130-400); RDW Coefficient of Variation 13.7 % (11.5-14.5); RDW Standard Deviation 44.8 fL (36.4-46.3); Red Blood Count 3.79 M/uL (4.63-6.08); White Blood Count 9.96 K/ul (4.8-10.8)
[2022-02-21 06:25] LABS: BUN Creatinine Ratio 9.7 (10-20); Creatinine Clr Calc Pharmacy 60.9 ml/min; Est GFR (African American) 64.6 ml/min; Est GFR (Non-African American) 55.8 ml/min; Magnesium 2.2 mg/dl (1.7-2.4); Potassium 4.1 mmol/L (3.5-5.1)
[2022-02-21] MEDS ORDERED: LEVOTHYROXINE SODIUM 50 MCG TABLET PO SCH (06:30)
[2022-02-21] MEDS ORDERED: LEVOTHYROXINE SODIUM 50 MCG TABLET PO ONE (07:34)
--- NOTE | 2022-02-21 08:16 | Nephrology Progress Note ---
Date of Service February 21, 2022 Assessment & Plan (1) [place] toxicity: Plan: * [place] level has improved from 3.2 to 1.8 following aggressive hydration * Patient is neurologically intact * No volume overload. Primary service has continued NS at 125 cc/hr * Recommend continued hydration today, serial monitoring of lithium and PRP * Cr is stable at 1.45. Suspect that this is patient's baseline * Will order urine for urinalysis and renal US Admission and Anticipated Discharge Date Admission Date: February 20, 2022 Subjective Mr. Haynes was seen & examined in his hospital room this morning. He was alert and oriented to self, place and month. He was able to follow simple one step commands without difficulty. He denied PEPE or dyspnea. Review of Systems Constitutional: + weakness Eyes: no problem reported Ear, Nose, Mouth, Throat: no problem reported Respiratory: no dyspnea Cardiovascular: no chest pain Gastrointestinal: no abdominal pain, no vomiting and no diarrhea/loose stools Genitourinary: no difficulty urinating Physical Exam Constitutional: not in distress Eyes: PERRL, conjunctivae normal, anicteric sclerae ENMT: Mouth: + dry oral mucous membranes Neck: trachea midline, no thyromegaly Respiratory: normal respiratory effort, lungs clear to auscultation Cardiovascular: RRR, no murmur, no edema Gastrointestinal (Abdomen): normal bowel sounds, soft, nontender, no hepatosplenomegaly Skin: no rashes, warm and dry + turgor decreased Neurologic: awake; not confused Results & Data ([facility]) Vital Signs (Past 12 Hours) Vital Signs Temp Pulse Resp BP Pulse Ox O2 Del Method 02/21/22 07:46 Room Air 02/21/22 05:00 56 L 16 98 02/21/22 05:00 145/89 H 02/21/22 04:00 60 13 98 02/21/22 04:00 37.3 C 146/95 H 02/21/22 03:00 56 L 9 L 99 02/21/22 02:01 61 16 98 02/21/22 02:01 138/84 02/21/22 02:00 61 15 97 02/21/22 01:00 56 L 13 96 02/21/22 01:00 124/85 02/21/22 00:00 62 12 98 02/21/22 00:00 138/87 07/14/22 23:25 64 02/20/22 23:00 37.4 C 67 17 98 02/20/22 23:00 137/92 02/20/22 22:00 66 13 98 02/20/22 22:00 150/96 H 02/20/22 21:00 68 15 96 02/20/22 21:00 138/84 Laboratory Results Laboratory Tests 02/20/22 02/20/22 02/20/22 08:37 15:00 18:54 WBC Hgb Hct Plt Count Sodium Potassium Chloride Carbon Dioxide BUN Creatinine [place] 3.2 H* 2.7 H* 2.4 H* 02/20/22 02/21/22 02/21/22 22:58 05:26 05:26 WBC 9.96 Hgb 11.3 L Hct 33.8 L Plt Count 229 Sodium 137 Potassium 4.1 Chloride 111 H Carbon Dioxide 24 BUN 14 Creatinine 1.45 H [place] 2.2 H* 02/21/22 07:01 WBC Hgb Hct Plt Count Sodium Potassium Chloride Carbon Dioxide BUN Creatinine [place] 1.8 H PG Care Time/CCT Total # of Minutes Spent Total Time Spent with Patient: Total time spent is greater than 50% in coordination of care (as documented) at patient's floor/unit and/or counseling patient: Coding Level of Care Code 88038 Subseq Hosp Care Lvl 3 Diagnoses [place] toxicity T56.891A
--- NOTE | 2022-02-21 08:52 | Critical Care Progress Note ---
Date of Service February 21, 2022 Assessment & Plan (1) Admitted to intensive care unit: Plan: Impression: 51-year-old male with chronic lithium use presenting to the hospital for generalized weakness and ataxia secondary to lithium overdose. Currently hemodynamically stable. Plan: Neuro: Metabolic encephalopathy, improved -Somnolence and neurologic change likely secondary to lithium overdose Respiratory: -No current respiratory problems, however, can rapidly change in the setting of lithium overdose. Continue to monitor oxygen saturation and add oxygen supplementation if needed. Cardiovascular: First-degree AV block -Unsure if this is acute or chronic issue as there are no previous EKGs available. Could be due to chronic lithium use. Renal/electrolyte: [place] toxicity -Presented with a lithium level of 3.2 with likely higher levels in the tissue, now at 1.8 -Fluid hydration -Nephrology consulted for evaluation of need for hemodialysis, however, not indicated at this time per nephrology GERDA -GERDA is suspected, however, there is no known baseline creatinine from this patient. Mild improvement of creatinine to 1.45. GI: GERD -IV famotidine every 12 Endocrine: Hypothyroidism -Elevated TSH at 93.8 with a free T4 of 0.3 indicative of chronic lithium use. -Synthroid for T4 replacement ICU hyperglycemia protocol, no history of diabetes Infectious disease: No ID problems at this time Heme-onc: Heparin for DVT prophylaxis Psych: Bipolar 1 disorder -Hold lithium for now in the setting of overdose -Patient could benefit from a psych consultation to explore alternatives to lithium therapy Diet: Regular DVT prophylaxis: Heparin Disposition: ICU CODE STATUS: Full code (2) Bipolar 1 disorder: (3) [place] toxicity: (4) Hypothyroidism: (5) GERDA (acute kidney injury): (6) Hypercalcemia: Admission and Anticipated Discharge Date Admission Date: February 20, 2022 Supervising Physician Co-Signing Physician Notes Dr. Pérez was resident physician during care of patient. I separately evaluated patient for chacko portions of the history and the exam. I was present during the critical portion of medical decision making, and I discussed the case with the resident. I generally agree with the findings and plan. Discussed with nephrology. [place] downtrending, stable for critical care to sign off and downgrade. Subjective Patient seen at bedside this morning. No acute events reported overnight. Patient feels mildly improved from yesterday but overall continues to feel tired and a little weak. Patient has been having good urinary output without any signs of pain or bleeding. Patient is alert and oriented. Denies any new complaints at this time Review of Systems Review of Systems: All systems reviewed & are unremarkable except as noted in HPI & below Physical Exam Constitutional: well developed, well nourished, cooperative and + lethargic Eyes: + anicteric sclerae Neck: trachea midline, no thyromegaly Respiratory: normal respiratory effort, lungs clear to auscultation Cardiovascular: RRR, no murmur, no edema Gastrointestinal (Abdomen): normal bowel sounds, soft, nontender, no hepatosplenomegaly Musculoskeletal: Head/Neck/Chest: normocephalic and head atraumatic Skin: no rashes, warm and dry Neurologic: moves all extremities Psychiatric: Orientation: oriented x 3 Eye Contact: + fair eye contact Affect: + flat affect Lymphatic: no cervical lymphadenopathy Results & Data Results & Data ([facility]) Vital Signs (Past 12 Hours) Vital Signs Temp Pulse Resp BP Pulse Ox O2 Del Method 02/21/22 08:00 57 L 02/21/22 07:46 Room Air 02/21/22 05:00 56 L 16 98 02/21/22 05:00 145/89 H 02/21/22 04:00 60 13 98 02/21/22 04:00 37.3 C 146/95 H 02/21/22 03:00 56 L 9 L 99 02/21/22 02:01 61 16 98 02/21/22 02:01 138/84 02/21/22 02:00 61 15 97 02/21/22 01:00 56 L 13 96 02/21/22 01:00 124/85 02/21/22 00:00 62 12 98 02/21/22 00:00 138/87 02/20/22 23:25 64 02/20/22 23:00 37.4 C 67 17 98 02/20/22 23:00 137/92 02/20/22 22:00 66 13 98 02/20/22 22:00 150/96 H 02/20/22 21:00 68 15 96 02/20/22 21:00 138/84
--- NOTE | 2022-02-21 09:15 | Billing Data ---
Date of Service February 21, 2022 Coding Level of Care Code 81635 Subseq Obs Care Lvl 1
--- NOTE | 2022-02-21 09:16 | Billing Data ---
Date of Service February 20, 2022 Coding Level of Care Code Critical Care 1st 30-74 mins
--- NOTE | 2022-02-21 11:34 | Hospitalist Progress Note ---
Date of Service February 21, 2022 Assessment & Plan (1) [place] toxicity: Plan: Patient chronically on [place] for Bipolar Presents with an elevated [place] level, 3.2 Some improvement, following IV fluids, 1.8 this morning will continue to hold [place] consult Psych for alternatives or dose adjustment Appreciate Nephrology No need for HD Recheck lithium level in the morning (2) Hypothyroidism: Plan: Elevated TSH and low T4 Likely due to effect of [place] Will increase his home synthroid to 100mcg daily from 50mcg Follow up PCP with Thyroid panel in 4 weeks (3) Bipolar 1 disorder: Plan: Hold his [place]- follow - as above - continue hydroxyzine -Consult Psych (4) GERD (gastroesophageal reflux disease): Plan: Famotidine daily IV (5) GERDA (acute kidney injury): Plan: Improving renal function Appreciate nephrology recs Admission and Anticipated Discharge Date Admission Date: February 20, 2022 Subjective patient seen and examined, denies any complaints, apart from occasional dry cough Review of Systems Review of Systems: All systems reviewed are negative, apart from the ones contained in the history. Physical Exam Physical Exam: The patient is awake, alert and oriented 3, well developed and well nourished, normocephalic and atraumatic, lying in bed and in no acute distress. HEENT--PERRL, EOMI, mucous membranes and oropharynx mildly dry Neck--supple. No JVD. No bruits. Thyroid normal, trachea midline, no adenopathy. Heart--normal S1 and S2. No murmurs, rubs or gallops. Lungs--clear bilaterally, no respiratory distress, no accessory muscle use. Abdomen--normal bowel sounds and soft. Mild epigastric and left sided abdominal pain Extremities--no cyanosis or clubbing. No edema. Dermatologic--normal skin turgor, normal color, no abnormal lymph nodes, no rash. Neurologic--cranial nerves II through XII grossly intact. Rheumatologic--normal range of motion. Psychiatric--normal affect. Results & Data Results & Data ([facility]) Vital Signs (Past 12 Hours) Vital Signs Temp Pulse Resp BP Pulse Ox O2 Del Method 02/21/22 08:00 Room Air 02/21/22 09:00 55 L 12 99 02/21/22 09:00 132/81 02/21/22 08:01 62 15 97 02/21/22 08:01 139/93 07/15/22 08:00 55 L 20 96 02/21/22 07:00 69 18 98 02/21/22 07:00 130/85 02/21/22 06:00 58 L 18 95 02/21/22 06:00 132/78 02/21/22 08:00 57 L 02/21/22 07:46 Room Air 02/21/22 05:00 56 L 16 98 02/21/22 05:00 145/89 H 02/21/22 04:00 60 13 98 02/21/22 04:00 99.1 F 146/95 H 02/21/22 03:00 56 L 9 L 99 02/21/22 02:01 61 16 98 02/21/22 02:01 138/84 02/21/22 02:00 61 15 97 02/21/22 01:00 56 L 13 96 02/21/22 01:00 124/85 02/21/22 00:00 62 12 98 02/21/22 00:00 138/87 PG Care Time/CCT Total # of Minutes Spent Total Time Spent with Patient: Total time spent is greater than 50% in coordination of care (as documented) at patient's floor/unit and/or counseling patient: Coding Level of Care Code 02602 Subseq Hosp Care Lvl 2 Diagnoses [place] toxicity T56.891A Hypothyroidism E03.9 Bipolar 1 disorder F31.9 GERD (gastroesophageal reflux disease) K21.9 GERDA (acute kidney injury) N17.9 Time Spent (min) 35
[2022-02-21 13:02] LABS: Appearance Urine Clear (Clear); Bacteria Urine Automated Negative (Negative); Bilirubin Urine Negative (Negative); Blood Urine Negative (Negative); Cast Urine Automated 0 /lpf (0-5); Color Urine Yellow; Glucose Urine UA Negative (Negative); Ketones Urine Negative (Negative); Leukocyte Esterase Urine Trace (Negative); Nitrite Urine Negative (Negative); Protein Urine Negative (Negative); RBC Urine Automated 0-4 /hpf (0-4); Specific Gravity Urine 1.006 (1.000-1.030); Urobilinogen Urine Negative (Negative); pH Urine 7.5 (4.5-7.5)
--- NOTE | 2022-02-21 13:36 | Ultrasound Report ---
RENAL ULTRASOUND HISTORY: Chronic kidney disease. COMPARISON: None. FINDINGS: Right kidney: 10.6 cm. No hydronephrosis. Normal cortical thickness. Trace perinephric fluid adjacent to the lower pole. Increased cortical echogenicity is noted. Left kidney: 11.4 cm. No hydronephrosis. A few cysts with the largest in the lower pole measuring 2.5 cm. Normal cortical thickness. Increased cortical echogenicity is noted. Bladder: Decompressed by Esquivel catheter. IMPRESSION: 1. No hydronephrosis. 2. Increased renal cortical echogenicity bilaterally suggesting medical renal disease. 3. The bladder is decompressed by a Esquivel catheter. ACT 112: Negative or not required by law. Electronically signed by: Alberto Joseph M.D. 02/21/2022 1:34 PM
[2022-02-21 14:42] LABS: Creatinine Urine Random 38.2 mg/dl; Protein Creatinine Ratio Urine 0.3 (0-0.2); Total Protein Urine Random 11.7 mg/dl (0-11.9)
--- NOTE | 2022-02-21 15:38 | Psychiatric Consultation ---
Date of Consultation February 21, 2022 Impression / Recommendations Impression 51 yo inmate from [facility] with BPAD admitted for Li toxicity and Li-induced hypothyroidism. Agree with holding [place] and discontinuing this in favor of an alternative mood stabilizer medication in context of toxicity and potential for this to re-occur if Li is re-started. Unclear what lead to acute toxicity or if level has been rising over time and causing worsening kidney function and less metabolism. For now would hold off on starting any medication for mood stabilization until he is medically stable. At that point could consider starting a new mood stabilizer, would ensure the shelter can continue whichever medication is started here versus waiting until he is back at [facility] and can then discuss options with his psychiatrist there. (1) Bipolar 1 disorder: (2) [place] toxicity: Plan -Discontinue [place] as you have done -Ok to use hydroxyzine 50mg qhs -Once medically stable restart Seroquel 100mg qhs, would continue to hold prior to admission cogentin -Consider initiation of Depakote ER (would start at 500mg qhs, ensure baseline labs of CBC with diff, LFTs, electrolytes, PT are normal. Check Depakote level after 3-5 days, recommend repeat CBC with diff, and LFTs at one month. Then CBC with diff, depakote level, and LFTs annually or anytime symptoms arise) versus antipsychotic medication (he's tolerated Seroquel previously so could be restarted at 100mg qhs and titrated further by psychiatrist at the shelter versus abilify versus risperidone). Psych History Identifying Data 51 yo man and inmate at [facility] with history of BPAD on lithium and neutropenia admitted medically for [place] toxicity. Chief Complaint "Uh oh what did I do now". History of Present Illness Gopal is lying in bed and denies any pain or discomfort. He reports having been on [place] for many years and that it was started in the shelter for his mood symptoms. He recalls taking seroquel before for sleep but doesn't recall any other history of mood stabilizer medication trials. He denies any history of dystonic reactions or allergic reactions to psychiatric medications. Per review of the shelter records from January 2022 he was being prescribed seroquel 100mg, hydroxyzine 50mg, cogentin, and [place] ER 300mg tab (frequency unclear)- per ED notes he was on 900mg BID but had not had a Li level checked since last year. He developed weakness with ataxia and Li level was found to be 3.2 on admission. Elevated TSH. Past Psychiatric History Outpatient Services: receives psychiatric care through the shelter, states he sees the psychiatrist every 2 to 3 months for his appointments Allergies Allergy/AdvReac Type Severity Reaction Status Date / Time No Known Allergies Allergy Verified 02/20/22 09:30 Home Medications Medication Instructions Recorded Confirmed Type propranolol 20 mg tablet 20 mg PO BID 01/23/20 02/20/22 History hydroxyzine pamoate 50 mg capsule 50 mg PO HS 02/20/22 02/20/22 History levothyroxine 50 mcg tablet 50 mcg PO DAILYBB 02/20/22 02/20/22 History lithium carbonate 450 mg 900 mg PO BID 02/20/22 02/20/22 History tablet,extended release Personal History Living Arrangements: incarcerated Beliefs That Will Affect Care: None History of Legal Problems: yes incarcerated Patient History Medical History Bipolar 1 disorder Disc degeneration GERD (gastroesophageal reflux disease) Hyperthyroidism Inmate in correctional facility Left inguinal hernia Neutropenia Sutured skin wound back of head in 1986 Surgical History No history of previous surgery S/P left inguinal hernia repair (02/16/20) Left Open Inguinal Hernia Repair with Mesh Dr. Castro 02/16/20 Family History Other Family history non-contributory Social History Smoking Status: Current some day smoker Tobacco Type: E-cigarettes / Vaping Second Hand Exposure: Yes; Hx Alcohol Use: No Hx Substance Use: Yes Preferred Language: South African Communication Ability: Effective Creative Writing Professor Required: No Beliefs That Will Affect Care: None Current Living Situation: Other Current Living Situation Comment: [facility] current occupational status: other current occupation: incarcerated Feels Safe at Home: Declines to Answer Assistive Devices: Glasses Physical Exam Psychiatric: Orientation: alert and oriented x 3 Apperance: appropriately dressed and appropriately groomed Eye Contact: good eye contact Motor Behavior: no abnormal motor movements Speech: normal rate/rhythm/volume of speech Affect: + constricted affect Mood: no depressed mood and no anxious mood Thought Process: linear/logical thought process Thought Content: reality based without delusions Suicidal Thoughts: denies suicidal thoughts Homicidal Thoughts: denies homicidal thoughts Hallucinations: no auditory hallucinations and no visual hallucinations Cognition: recent memory grossly intact, remote memory grossly intact, attention grossly intact and language grossly intact Insight: + fair insight Judgement: + fair judgement Vital Signs (Past 24 Hours): Last Vital Signs Temp 37.1 C 02/21/22 15:04 Pulse 61 02/21/22 13:00 Resp 18 02/21/22 13:00 BP 149/97 H 02/21/22 13:00 Pulse Ox 96 02/21/22 13:00 O2 Del Method 02/21/22 08:00 Review of Systems All systems reviewed & are unremarkable except as noted in HPI & below Results & Data (PSY) Medications Administered Heparin Sodium (Porcine) (Heparin Sod 5,000 Unit/0.5 Ml Vial) 5,000 units SQ Q8 TJ Stop: 03/22/22 14:51 Last Admin: 02/21/22 13:37 Dose: 5,000 units Documented By: Admin: 02/21/22 05:27 Dose: 5,000 units Documented By: Admin: 02/20/22 21:21 Dose: 5,000 units Documented By: Admin: 02/20/22 15:45 Dose: 5,000 units Documented By: WILL Hydroxyzine HCl (Hydroxyzine Hcl 25 Mg Tab) 50 mg PO HS TJ Stop: 03/22/22 20:59 Last Admin: 02/20/22 21:21 Dose: 50 mg Documented By: KAREN Famotidine 20 mg/ Syringe 5 mls @ 2.5 mls/min IV Q12H TJ Stop: 03/22/22 15:59 Last Admin: 02/21/22 05:27 Dose: 2.5 mls/min Documented By: Admin: 02/20/22 15:47 Dose: 2.5 mls/min Documented By: WILL Sodium Chloride (Nss 1000ml) 1,000 mls @ 125 mls/hr IV .Q8H TJ Stop: 03/23/22 03:59 Last Admin: 02/21/22 09:38 Dose: 125 mls/hr Documented By: Infusion: 02/21/22 08:32 Dose: 125 mls/hr Documented By: Admin: 02/21/22 04:32 Dose: 125 mls/hr Documented By: KAREN Coding Level of Care Code 22242 Inpt Consult Level 3 Diagnoses Bipolar 1 disorder F31.9 [place] toxicity T56.891A
--- NOTE | 2022-02-21 18:04 | Electrocardiogram Report ---
Test Reason : Blood Pressure : / mmHG Vent. Rate : 061 BPM Atrial Rate : 061 BPM P-R Int : 242 ms QRS Dur : 118 ms QT Int : 420 ms P-R-T Axes : 055 006 -78 degrees QTc Int : 422 ms Sinus rhythm with 1st degree A-V block Non-specific intra-ventricular conduction delay T wave abnormality, consider anterolateral ischemia Abnormal ECG When compared with ECG of 20-FEB-2022 15:21, (unconfirmed) No significant change was found Confirmed by Josue Josue ([id number]) on 02/21/2022 6:04:11 PM Referred By: [facility] Confirmed By:Abrahan Josue
--- NOTE | 2022-02-21 18:13 | Electrocardiogram Report ---
Test Reason : Blood Pressure : / mmHG Vent. Rate : 064 BPM Atrial Rate : 064 BPM P-R Int : 256 ms QRS Dur : 120 ms QT Int : 432 ms P-R-T Axes : 039 006 -60 degrees QTc Int : 445 ms Sinus rhythm with 1st degree A-V block Non-specific intra-ventricular conduction delay T wave abnormality, consider anterolateral ischemia Abnormal ECG When compared with ECG of 20-FEB-2022 08:52, No significant change was found Confirmed by Josue Josue ([id number]) on 02/21/2022 6:13:06 PM Referred By: [facility] Confirmed By:Abrahan Josue
[2022-02-21] MEDS: hydrOXYzine HCl 25 MG TAB PO SCH (21:29)
[2022-02-22] MEDS: SODIUM CHLORIDE 0.9% 1000ML 1,000 ML IV SCH ×3 (02:09→16:51)
[2022-02-22] MEDS: LEVOTHYROXINE SODIUM 100 MCG TABLET PO SCH (06:01)
[2022-02-22] MEDS: HEPARIN SOD 5,000 UNIT/0.5 ML VIAL SQ SCH ×3 (06:01→21:14)
[2022-02-22 06:45] LABS: Basophils # (auto) 0.05 K/uL (0-0.2); Basophils % (auto) 0.7 %; Eosinophils # (auto) 0.36 K/uL (0-0.50); Eosinophils % (auto) 5.2 %; Hematocrit (blood only) 33.2 % (40.1-51.0); Hemoglobin 11.2 g/dl (14.0-18.0); Immature Granulocytes # (auto) 0.05 K/uL (0.00-0.02); Immature Granulocytes % (auto) 0.7 %; Lymphocytes # (auto) 1.33 K/uL (1.2-3.4); Lymphocytes % (auto) 19.2 %; Mean Corpuscular Hemoglobin 29.9 pg (25.0-34.0); Mean Corpuscular Hgb Conc 33.7 g/dL (32.0-36.0); Mean Corpuscular Volume 88.8 fL (80.0-100.0); Mean Platelet Volume 11.2 fL (9.4-12.4); Monocytes # (auto) 0.47 K/uL (0.24-0.82); Monocytes % (auto) 6.8 %; Neutrophils # (auto) 4.67 K/uL (1.4-6.5); Neutrophils % (auto) 67.4 %; Platelet Count 232 K/uL (130-400); RDW Coefficient of Variation 13.7 % (11.5-14.5); RDW Standard Deviation 44.9 fL (36.4-46.3); Red Blood Count 3.74 M/uL (4.63-6.08); White Blood Count 6.93 K/ul (4.8-10.8)
[2022-02-22] MEDS: FAMOTIDINE 20 MG in SYRINGE 3 ML IV SCH ×2 (07:23→17:03)
[2022-02-22 07:31] LABS: BUN Creatinine Ratio 7.8 (10-20); Calcium 9.8 mg/dl (8.5-10.1); Creatinine Clr Calc Pharmacy 76.2 ml/min; Est GFR (African American) 84.6 ml/min; Potassium 3.9 mmol/L (3.5-5.1)
--- NOTE | 2022-02-22 10:43 | Hospitalist Progress Note ---
Date of Service February 22, 2022 Assessment & Plan (1) [place] toxicity: Plan: Patient chronically on [place] for Bipolar Presents with an elevated [place] level, 3.2 Some improvement, following IV fluids, 1.4 yesterdaaay, todays level pending Appreciate Nephrology No need for HD Recheck lithium level in the morning per psych: Discontinue [place] as you have done -Ok to use hydroxyzine 50mg qhs -Once medically stable restart Seroquel 100mg qhs, would continue to hold prior to admission cogentin -Consider initiation of Depakote ER (would start at 500mg qhs, ensure baseline labs of CBC with diff, LFTs, electrolytes, PT are normal. Check Depakote level after 3-5 days, recommend repeat CBC with diff, and LFTs at one month. Then CBC with diff, depakote level, and LFTs annually or anytime symptoms arise) versus antipsychotic medication (he's tolerated Seroquel previously so could be restarted at 100mg qhs and titrated further by psychiatrist at the assisted versus abilify versus risperidone). (2) Hypothyroidism: Plan: Elevated TSH and low T4 Likely due to effect of [place] Will increase his home synthroid to 100mcg daily from 50mcg Follow up PCP with Thyroid panel in 4 weeks (3) Bipolar 1 disorder: Plan: Per psych: Discontinue [place] as you have done -Ok to use hydroxyzine 50mg qhs -Once medically stable restart Seroquel 100mg qhs, would continue to hold prior to admission cogentin -Consider initiation of Depakote ER (would start at 500mg qhs, ensure baseline labs of CBC with diff, LFTs, electrolytes, PT are normal. Check Depakote level after 3-5 days, recommend repeat CBC with diff, and LFTs at one month. Then CBC with diff, depakote level, and LFTs annually or anytime symptoms arise) versus antipsychotic medication (he's tolerated Seroquel previously so could be restarted at 100mg qhs and titrated further by psychiatrist at the assisted versus abilify versus risperidone). (4) GERD (gastroesophageal reflux disease): Plan: Famotidine daily IV (5) GERDA (acute kidney injury): Plan: Improving renal function Appreciate nephrology recs Plan hopefully d/c in the next 24 hrs Admission and Anticipated Discharge Date Admission Date: February 20, 2022 Subjective patient seen and examined, denies any complaints, apart from occasional dry cough Review of Systems Review of Systems: All systems reviewed are negative, apart from the ones contained in the history. Physical Exam Physical Exam: The patient is awake, alert and oriented 3, well developed and well nourished, normocephalic and atraumatic, lying in bed and in no acute distress. HEENT--PERRL, EOMI, mucous membranes and oropharynx mildly dry Neck--supple. No JVD. No bruits. Thyroid normal, trachea midline, no adenopathy. Heart--normal S1 and S2. No murmurs, rubs or gallops. Lungs--clear bilaterally, no respiratory distress, no accessory muscle use. Abdomen--normal bowel sounds and soft. Mild epigastric and left sided abdominal pain Extremities--no cyanosis or clubbing. No edema. Dermatologic--normal skin turgor, normal color, no abnormal lymph nodes, no rash. Neurologic--cranial nerves II through XII grossly intact. Rheumatologic--normal range of motion. Psychiatric--normal affect. Results & Data Results & Data ([facility]) Vital Signs (Past 12 Hours) Vital Signs Temp Pulse Pulse Resp BP Pulse Ox O2 Del Method 02/22/22 07:37 98.1 F 60 17 138/89 90 Room Air 02/22/22 07:13 60 02/22/22 04:00 97.5 F L 52 L 20 152/90 H 99 Room Air 02/21/22 23:57 98.2 F 59 L 18 153/85 H 99 Room Air 02/21/22 22:53 58 L PG Care Time/CCT Total # of Minutes Spent Total Time Spent with Patient: Total time spent is greater than 50% in coordination of care (as documented) at patient's floor/unit and/or counseling patient: Coding Level of Care Code 31750 Subseq Hosp Care Lvl 2 Diagnoses [place] toxicity T56.891A Hypothyroidism E03.9 Bipolar 1 disorder F31.9 GERD (gastroesophageal reflux disease) K21.9 GERDA (acute kidney injury) N17.9 Time Spent (min) 35
--- NOTE | 2022-02-22 11:26 | Electrocardiogram Report ---
Test Reason : Blood Pressure : / mmHG Vent. Rate : 061 BPM Atrial Rate : 059 BPM P-R Int : 000 ms QRS Dur : 106 ms QT Int : 442 ms P-R-T Axes : 000 -06 268 degrees QTc Int : 444 ms Poor data quality, interpretation may be adversely affected Probable Normal sinus rhythm T wave abnormality, consider inferior ischemia T wave abnormality, consider anterolateral ischemia Abnormal ECG When compared with ECG of 21-FEB-2022 05:42, No significant change Confirmed by Gurpreet Tong ([id number]) on 02/22/2022 11:26:36 AM Referred By: [facility] Confirmed By:Gurpreet Tong
[2022-02-22] MEDS: hydrOXYzine HCl 25 MG TAB PO SCH (21:14)
[2022-02-23] MEDS: SODIUM CHLORIDE 0.9% 1000ML 1,000 ML IV SCH (01:47)
[2022-02-23] MEDS: FAMOTIDINE 20 MG in SYRINGE 3 ML IV SCH (05:57)
[2022-02-23] MEDS: LEVOTHYROXINE SODIUM 100 MCG TABLET PO SCH (05:57)
[2022-02-23] MEDS: HEPARIN SOD 5,000 UNIT/0.5 ML VIAL SQ SCH (05:58)
[2022-02-23 07:05] LABS: Basophils # (auto) 0.05 K/uL (0-0.2); Basophils % (auto) 0.8 %; Eosinophils % (auto) 4.6 %; Hematocrit (blood only) 35.2 % (40.1-51.0); Immature Granulocytes # (auto) 0.04 K/uL (0.00-0.02); Immature Granulocytes % (auto) 0.6 %; Lymphocytes # (auto) 1.26 K/uL (1.2-3.4); Lymphocytes % (auto) 19.4 %; Mean Corpuscular Hemoglobin 29.6 pg (25.0-34.0); Mean Corpuscular Hgb Conc 34.1 g/dL (32.0-36.0); Mean Corpuscular Volume 86.7 fL (80.0-100.0); Mean Platelet Volume 11.1 fL (9.4-12.4); Monocytes # (auto) 0.41 K/uL (0.24-0.82); Monocytes % (auto) 6.3 %; Neutrophils # (auto) 4.44 K/uL (1.4-6.5); Neutrophils % (auto) 68.3 %; Platelet Count 258 K/uL (130-400); RDW Coefficient of Variation 13.9 % (11.5-14.5); RDW Standard Deviation 44.1 fL (36.4-46.3); Red Blood Count 4.06 M/uL (4.63-6.08)
[2022-02-23 07:48] LABS: Albumin Level 3.8 gm/dl (3.4-5.0); Bilirubin Direct 0.1 mg/dl (0-0.2); Bilirubin,Total 0.4 mg/dl (0.2-1.0); Calcium 9.9 mg/dl (8.5-10.1); Creatinine Clr Calc Pharmacy 76.8 ml/min; Est GFR (African American) 85.5 ml/min; Est GFR (Non-African American) 73.8 ml/min; Magnesium 1.9 mg/dl (1.7-2.4); Potassium 3.6 mmol/L (3.5-5.1); Total Protein 7.2 gm/dl (6.0-8.3)
--- NOTE | 2022-02-23 11:39 | Discharge Summary ---
Date of Service February 23, 2022 Admission HPI Per Admitting Provider 51 YOM with medical history of: bipolar disorder(on [place]), hypothyroidism, HTN. Patient comes to the EMD today for concerns of ataxia and reported facial droop and tremor. In the EMD the patient had initial stroke work-up and routine labs to include lithium level and TSH. The patient lithium level is increased to 3.2 and consistent with this elevated lithium level he is notably hypothyroid with TSH 93 and T4 -0.3. The patient states that this started approximately 2 weeks ago. He noted that his legs were becoming rigid and shaky as well as tremors in his upper extremities when trying to get dressed. He has becoming full more quickly but states he has been drinking fine and urinating normally with yellow urine. He denies any diarrhea or vomiting. He denies any other use of NSAIDS or Tylenol and no new medications initiated over the past few weeks. He does note addition of propranolol within the past month. 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 Rest of his electrolytes are normal. He received 1.5 liters of crystalloid in the EMD. Will bolus the rest of remaining saline bag and transition to ringers lactate. Will likely need more volume. Will send serum osmo, urine osmo, and urine sodium level. Will also add on Salicylate and Tylenol levels. Urine Tox is also pending. Patient will be admitted to ICU for frequent neurological exams as well as continued resuscitation. Will hold his [place]. As this is likely chronic use exacerbated his levels in his tissues are likely higher making his status more tenuous. COVID test on admission is: PENDING Principal Diagnosis [place] toxicity Discharge Exam The patient is awake, alert and oriented 3, well developed and well nourished, normocephalic and atraumatic, lying in bed and in no acute distress. HEENT--PERRL, EOMI, mucous membranes and oropharynx mildly dry Neck--supple. No JVD. No bruits. Thyroid normal, trachea midline, no adenopathy. Heart--normal S1 and S2. No murmurs, rubs or gallops. Lungs--clear bilaterally, no respiratory distress, no accessory muscle use. Abdomen--normal bowel sounds and soft. Mild epigastric and left sided abdominal pain Extremities--no cyanosis or clubbing. No edema. Dermatologic--normal skin turgor, normal color, no abnormal lymph nodes, no rash. Neurologic--cranial nerves II through XII grossly intact. Rheumatologic--normal range of motion. Psychiatric--normal affect. Discharge Data Allergies Allergy/AdvReac Type Severity Reaction Status Date / Time No Known Allergies Allergy Verified 02/20/22 09:30 Consultations 02/20/22 11:36 ED Decision to Admit Stat 02/20/22 14:52 Consult Cloth Spreader Screen Printing Routine Consult Nephrology Routine 02/21/22 11:14 Consult Psychiatry Routine Ordered Studies 02/20/22 08:47 CT head/brain wo con Stat 02/21/22 11:07 US renal/blad retro comp Routine Hospital Course (1) [place] toxicity: Patient chronically on [place] for Bipolar Presents with an elevated [place] level, 3.2 Now wnl Appreciate Nephrology per psych: Discontinue [place] as you have done -Ok to use hydroxyzine 50mg qhs -Once medically stable restart Seroquel 100mg qhs, would continue to hold prior to admission serenaentin -Consider initiation of Depakote ER (would start at 500mg qhs, ensure baseline labs of CBC with diff, LFTs, electrolytes, PT are normal. Check Depakote level after 3-5 days, recommend repeat CBC with diff, and LFTs at one month. Then CBC with diff, depakote level, and LFTs annually or anytime symptoms arise) versus antipsychotic medication (he's tolerated Seroquel previously so could be restarted at 100mg qhs and titrated further by psychiatrist at the shelter versus abilify versus risperidone). (2) Hypothyroidism: Elevated TSH and low T4 Likely due to effect of [place] Will increase his home synthroid to 100mcg daily from 50mcg Follow up PCP with Thyroid panel in 4 weeks (3) Bipolar 1 disorder: Per psych: Discontinue [place] as you have done -Ok to use hydroxyzine 50mg qhs -Once medically stable restart Seroquel 100mg qhs, would continue to hold prior to admission cogentin -Consider initiation of Depakote ER (would start at 500mg qhs, ensure baseline labs of CBC with diff, LFTs, electrolytes, PT are normal. Check Depakote level after 3-5 days, recommend repeat CBC with diff, and LFTs at one month. Then CBC with diff, depakote level, and LFTs annually or anytime symptoms arise) versus antipsychotic medication (he's tolerated Seroquel previously so could be restarted at 100mg qhs and titrated further by psychiatrist at the shelter versus abilify versus risperidone). (4) GERD (gastroesophageal reflux disease): Famotidine daily IV (5) GERDA (acute kidney injury): Improving renal function Appreciate nephrology recs Plan hopefully d/c in the next 24 hrs Total Time Total Time Spent Total Time Spent (In Minutes): 35 Discharge Plan Discharge Items Patient Disposition: [facility] Reason For Visit: lithium toxicity Discharge Diagnosis: [place] Toxicity Activity: Resume your previous activity Non-emergency contact: Primary Care Provider Call non-emergency contact if: you have any medication questions Follow-up/Referrals: Page ALEJANDRO [Primary Care Provider] - Diet: Regular Addtl Attending Provider Instructions: please make appointment to follow up with your Psychiatrist Pending Studies at Discharge: No Stand-Alone Forms: My [employer] Skilled Items Patient informed of condition?: Yes Discharge Level of Care: Other Communicable Disease: No Discharge Prognosis: Stable Lines: None Urinary Catheter: No Medications and DC Order Prescriptions: New levothyroxine [Synthroid] 100 mcg Tablet 100 mcg PO DAILYBB Qty: 30 0RF quetiapine [Seroquel] 100 mg tablet 100 mg PO DAILY Qty: 30 0RF divalproex [Depakote ER] 500 mg tablet extended release 24 hr 500 mg PO DAILY Qty: 30 0RF Continued propranolol 20 mg tablet 20 mg PO BID hydroxyzine pamoate 50 mg Capsule 50 mg PO HS Discontinued lithium carbonate 450 mg Tablet Extended Release 900 mg PO BID levothyroxine 50 mcg Tablet 50 mcg PO DAILYBB Discharge Orders: Discharge Order (Routine); Ordered 02/23/22 Ordered By: Paul Coleman Admission Data Admit Date/Time: 02/20/22 11:25 Attending Provider: Paul Coleman Admit Provider: Eduardo August Primary Care Provider: Page ALEJANDRO Other Providers: Seamus Velazquez ; Eduardo August ; Memo Albarado ; Emilia Roemro ; Meghan Whitney ; Anna Arriaga Other Interventions: Discharge Summary Assessment (RN) Last Done: 02/23/22 10:42 Coding Level of Care Code D/C DAY MANAGEMENT >30 MINS Diagnoses [place] toxicity T56.891A Hypothyroidism E03.9 Bipolar 1 disorder F31.9 GERD (gastroesophageal reflux disease) K21.9 GERDA (acute kidney injury) N17.9 Time Spent (min) 35
== END 2022-02-23 11:39 | DRG 917 ==
LOC: ED 08:25 → SUATTDRO 11:25 → 1E 11:25 → 2E 02-21 18:16